=== PATIENT | female | born 1995 | race Caucasian/White ===

== ENCOUNTER → 2017-04-11 | Outpatient (REF) | payer OTHER ==
[~2017-04-11] MED LIST: BACT800T5 PO; CEFD1CAP8 PO; CIPR500T3 PO; FLAG500T PO; HUMI40KI SC; HYDR-3716 PO; IBUP80TA PO; IMUR50TA6 PO; LEVA1TAB2 PO; NO MEDS; PENT500C PO; PERC5TAB12 PO; PRED10TA PO; PRED20TA PO; PRED5PAK PO; PRENTAB40 PO; RANI1TAB6 PO; TAMS0.4C2 PO; ZOFR4TAB3 PO
== END ==
LOC: M SFHCCLAY 09:54
PROVIDERS: ATTEND Family Medicine
DX: Z01.419 Encounter for gynecological examination (general) (routine) without abnormal findings (principal); Z72.51 High risk heterosexual behavior

== ENCOUNTER → 2017-04-12 | Outpatient (CLI) | payer OTHER ==
[2017-04-12 12:35] LABS: ANION GAP 8 MEQ/L (8-16); BLOOD UREA NITROGEN 12 MG/DL (7-18); CARBON DIOXIDE LEVEL 27 MEQ/L (21-32); CHLORIDE LEVEL 103 MEQ/L (98-107); CREATININE FOR GFR 0.58 MG/DL (0.55-1.02); GLOMERULAR FILTRATION RATE > 60.0 (>60); GLUCOSE, FASTING 76 MG/DL (70-105); POTASSIUM SERUM 4.2 MEQ/L (3.5-5.1); SODIUM LEVEL 138 MEQ/L (136-145)
[2017-04-12 12:42] LABS: HEPATITIS B SURFACE ANTIBODY NEGATIVE (POSITIVE); VITAMIN B12 LEVEL 434 PG/ML (247-911)
[2017-04-12 12:48] LABS: MEAN CORPUSCULAR HEMOGLOBIN 28.9 pg (27.0-33.0); MEAN CORPUSCULAR HGB CONC 32.7 g/dl (32.0-36.5); MEAN CORPUSCULAR VOLUME 88.5 fl (80.0-96.0); RED CELL DISTRIBUTION WIDTH 14.2 % (11.5-14.5); WHITE BLOOD COUNT 11.5 K/mm3 (4.0-10.0)
[2017-04-23 14:38] LABS: ANSER ADA #3170 SEE SEPARATE REPORT
== END ==
LOC: M LAB 10:31
PROVIDERS: ATTEND Physician Assistant
DX: K50.10 Crohn's disease of large intestine without complications (principal)

== ENCOUNTER → 2017-04-12 | Outpatient (CLI) | payer OTHER | LOC: M LAB 10:44 | PROVIDERS: ATTEND Family Medicine | DX: Z72.51 High risk heterosexual behavior (principal) ==

== ENCOUNTER 2018-02-10 22:43 | Emergency (ER) | payer MEDICAID, SELFPAY, OTHER ==
[2018-02-11] MEDS: AUGMENTIN 875 MG TAB PO ×2 (00:43)
[2018-02-11] MEDS: OXYCODONE/APAP 5MG/325MG(BULK FOR ED) 1 TABLET PO ×2 (00:44)
== END 2018-02-11 00:50 | disposition home or self-care (01) ==
LOC: M ED 22:43
DX: S02.5XXA Fracture of tooth (traumatic), initial encounter for closed fracture (principal); X58.XXXA Exposure to other specified factors, initial encounter; Y92.89 Other specified places as the place of occurrence of the external cause
CPT/HCPCS: 99284

== ENCOUNTER 2018-02-18 17:37 | Emergency (ER) | payer MEDICAID, SELFPAY ==
[2018-02-18] MEDS: ACETAMINOPHEN 325 MG TAB PO ×2 (20:16)
[2018-02-18 20:28] LABS: BASO % 0.3 % (0.0-1.0); EOS # 0.1 10^3/uL (0.0-0.50); EOS % 1.1 % (0.0-3.0); HEMATOCRIT 38.2 % (36.0-47.0); HEMOGLOBIN 12.1 g/dl (12.0-15.5); IMMATURE GRANULOCYTE % 0.3 % (0-3.0); LYMPH # 2.1 10^3/uL (1.5-6.5); LYMPH % 22.1 % (24.0-44.0); MEAN CORPUSCULAR HEMOGLOBIN 26.9 pg (27.0-33.0); MEAN CORPUSCULAR HGB CONC 31.7 g/dl (32.0-36.5); MEAN CORPUSCULAR VOLUME 85.1 fl (80.0-96.0); MONO # 0.7 10^3/uL (0.0-0.8); MONO % 7.8 % (0.0-5.0); NEUTROPHILS # 6.3 10^3/uL (1.8-7.7); NEUTROPHILS % 68.4 % (36.0-66.0); PLATELET COUNT, AUTOMATED 367 10^3/uL (150-450); RED BLOOD COUNT 4.49 10^6/uL (4.00-5.40); RED CELL DISTRIBUTION WIDTH 13.5 % (11.5-14.5); WHITE BLOOD COUNT 9.3 10^3/uL (4.0-10.0)
[2018-02-18 20:34] LABS: KETONE, URINE AUTO RFX NEGATIVE (NEGATIVE); LEUKOCYTE ESTERASE UR AUTO RFX NEGATIVE (NEGATIVE); MUCUS, URINE RFX SMALL (NEGATIVE); NITRITE, URINE AUTO RFX NEGATIVE (NEGATIVE); RBC, URINE AUTO RFX 3 /HPF (0-3); SPECIFIC GRAVITY UR AUTO RFX 1.021 (1.002-1.035); SQUAM EPITHELIAL CELL UR AURFX 5 /HPF (0-6); WBC, URINE AUTO RFX 2 /HPF (0-3)
[2018-02-18 20:47] LABS: CONTROL LINE MONO INT CTR LINE PRESENT; MONO SCRN NEGATIVE (NEGATIVE)
[2018-02-18 21:09] LABS: ALBUMIN 3.2 GM/DL (3.2-5.2); ALKALINE PHOSPHATASE 67 U/L (45-117); ALT/SGPT 28 U/L (12-78); ANION GAP 9 MEQ/L (8-16); AST/SGOT 27 U/L (7-37); BILIRUBIN,DIRECT 0.1 MG/DL (0.0-0.2); BILIRUBIN,TOTAL 0.2 MG/DL (0.2-1.0); BLOOD UREA NITROGEN 11 MG/DL (7-18); CALCIUM LEVEL 8.7 MG/DL (8.5-10.1); CARBON DIOXIDE LEVEL 27 MEQ/L (21-32); CHLORIDE LEVEL 100 MEQ/L (98-107); CREATININE FOR GFR 0.68 MG/DL (0.55-1.30); GLOMERULAR FILTRATION RATE > 60.0 (>60); GLUCOSE, FASTING 92 MG/DL (70-100); HCG, SERUM QUANTITATIVE 34280 MIU/ML; POTASSIUM SERUM 4.3 MEQ/L (3.5-5.1); SODIUM LEVEL 136 MEQ/L (136-145); TOTAL PROTEIN 7.8 GM/DL (6.4-8.2)
== END 2018-02-18 21:45 | disposition home or self-care (01) ==
LOC: M ED 17:37
DX: J02.8 Acute pharyngitis due to other specified organisms (principal); K50.90 Crohn's disease, unspecified, without complications; R51 Headache; F41.9 Anxiety disorder, unspecified; Z90.49 Acquired absence of other specified parts of digestive tract; Z72.0 Tobacco use
CPT/HCPCS: 80076

== ENCOUNTER 2018-03-16 23:46 | Emergency (ER) | payer SELFPAY, MEDICAID ==
[2018-03-17 01:10] LABS: PROTHROMBIN TIME 12.2 SECONDS (12.1-14.4)
[2018-03-17 01:16] LABS: BASO % 0.3 % (0.0-1.0); EOS # 0.3 10^3/uL (0.0-0.50); EOS % 3.2 % (0.0-3.0); HEMOGLOBIN 11.4 g/dl (12.0-15.5); IMMATURE GRANULOCYTE % 0.3 % (0-3.0); LYMPH # 1.9 10^3/uL (1.5-6.5); LYMPH % 18.3 % (24.0-44.0); MEAN CORPUSCULAR HGB CONC 31.7 g/dl (32.0-36.5); MEAN CORPUSCULAR VOLUME 85.1 fl (80.0-96.0); MONO # 0.6 10^3/uL (0.0-0.8); MONO % 6.2 % (0.0-5.0); NEUTROPHILS # 7.3 10^3/uL (1.8-7.7); NEUTROPHILS % 71.7 % (36.0-66.0); PLATELET COUNT, AUTOMATED 348 10^3/uL (150-450); RED BLOOD COUNT 4.23 10^6/uL (4.00-5.40); RED CELL DISTRIBUTION WIDTH 15.5 % (11.5-14.5); WHITE BLOOD COUNT 10.2 10^3/uL (4.0-10.0)
[2018-03-17] MEDS: NS 1,000 ML IV (01:25)
[2018-03-17] MEDS: ONDANSETRON 4MG/2ML VIAL (J2405) IV (01:25)
[2018-03-17] MEDS: MORPHINE 2 MG/ML 1ML SYRINGE (J2270) IV (01:25)
[2018-03-17 02:05] LABS: ALBUMIN 3.5 GM/DL (3.2-5.2); ALBUMIN/GLOBULIN RATIO 0.83 (1.00-1.93); ALKALINE PHOSPHATASE 60 U/L (45-117); ALT/SGPT 29 U/L (12-78); ANION GAP 6 MEQ/L (8-16); AST/SGOT 32 U/L (7-37); BILIRUBIN,DIRECT < 0.1 MG/DL (0.0-0.2); BILIRUBIN,TOTAL 0.3 MG/DL (0.2-1.0); BLOOD UREA NITROGEN 10 MG/DL (7-18); CALCIUM LEVEL 8.5 MG/DL (8.5-10.1); CARBON DIOXIDE LEVEL 26 MEQ/L (21-32); CHLORIDE LEVEL 106 MEQ/L (98-107); CREATININE FOR GFR 0.63 MG/DL (0.55-1.30); GLOMERULAR FILTRATION RATE > 60.0 (>60); GLUCOSE, FASTING 92 MG/DL (70-100); HCG, SERUM QUANTITATIVE 17923 MIU/ML; LIPASE 93 U/L (73-393); SODIUM LEVEL 138 MEQ/L (136-145); TOTAL PROTEIN 7.7 GM/DL (6.4-8.2)
== END 2018-03-17 04:53 | disposition home or self-care (01) ==
LOC: M ED 23:46
DX: O03.4 Incomplete spontaneous abortion without complication (principal); O99.331 Smoking (tobacco) complicating pregnancy, first trimester; Z3A.01 Less than 8 weeks gestation of pregnancy
CPT/HCPCS: J2405

== ENCOUNTER 2018-04-10 18:01 | Day surgery (SDC) | payer MEDICAID, SELFPAY, OTHER ==
[2018-04-10 19:55] LABS: BASO % 0.4 % (0.0-1.0); EOS % 0.4 % (0.0-3.0); HEMATOCRIT 25.8 % (36.0-47.0); IMMATURE GRANULOCYTE % 0.7 % (0-3.0); LYMPH # 2.1 10^3/uL (1.5-6.5); LYMPH % 22.9 % (24.0-44.0); MEAN CORPUSCULAR HEMOGLOBIN 24.8 pg (27.0-33.0); MEAN CORPUSCULAR VOLUME 79.9 fl (80.0-96.0); MONO # 0.7 10^3/uL (0.0-0.8); MONO % 7.9 % (0.0-5.0); NEUTROPHILS # 6.1 10^3/uL (1.8-7.7); NEUTROPHILS % 67.7 % (36.0-66.0); PLATELET COUNT, AUTOMATED 336 10^3/uL (150-450); RED BLOOD COUNT 3.23 10^6/uL (4.00-5.40); RED CELL DISTRIBUTION WIDTH 16.2 % (11.5-14.5)
[2018-04-10] MEDS: NORCO, ANEXSIA 5/325MG TABLET (HYDROcodone/ACETAMINOPHEN) PO ×2 (19:57)
[2018-04-10] MEDS: NS 1,000 ML IV ×2 (20:45)
[2018-04-10 21:12] LABS: CONTROL LINE HCG INT CTR LINE PRESENT; HCG, SERUM QUALITATIVE POSITIVE (NEGATIVE)
[2018-04-10 21:15] LABS: INR 1.09; PROTHROMBIN TIME 14.2 SECONDS (12.1-14.4)
[2018-04-10 21:18] LABS: ANION GAP 8 MEQ/L (8-16); BLOOD UREA NITROGEN 16 MG/DL (7-18); CALCIUM LEVEL 8.2 MG/DL (8.5-10.1); CARBON DIOXIDE LEVEL 25 MEQ/L (21-32); CHLORIDE LEVEL 105 MEQ/L (98-107); GLOMERULAR FILTRATION RATE > 60.0 (>60); GLUCOSE, FASTING 94 MG/DL (70-100); POTASSIUM SERUM 3.6 MEQ/L (3.5-5.1); SODIUM LEVEL 138 MEQ/L (136-145)
[2018-04-10] MEDS: ONDANSETRON 4MG/2ML VIAL (J2405) IV ×2 (22:05)
[2018-04-10] MEDS: MORPHINE 4 MG/ML 1ML VIAL/SYRINGE (J2270) IV ×2 (22:06)
[2018-04-11] MEDS: LR 1,000 ML IV ×6 (00:04→05:13)
[2018-04-11] MEDS ORDERED: DOXYCYCLINE HYCLATE 100 MG/10 ML VIAL As Ordered ×4 (01:36→03:18)
[2018-04-11] MEDS ORDERED: MIDAZOLAM INJ 2 MG/2 ML VIAL (J2250) As Ordered ×2 (02:29)
[2018-04-11] MEDS ORDERED: PROPOFOL 200 MG/20 ML VIAL As Ordered ×2 (02:29)
[2018-04-11] MEDS ORDERED: LIDOCAINE 2% INJ 100 MG/5 ML SDV (FOR ANES.) As Ordered ×2 (02:29)
[2018-04-11] MEDS ORDERED: fentaNYL 100 MCG/2 ML INJECTION (J3010) As Ordered ×2 (02:29)
[2018-04-11] MEDS: DOXYCYCLINE HYCLATE 100 MG in D5W MINI-BAG PLUS 100 ML IV (03:30)
[2018-04-11] MEDS ORDERED: ONDANSETRON 4MG/2ML VIAL (J2405) As Ordered ×2 (03:40)
[2018-04-11] MEDS ORDERED: dexameTHASONE 4 MG/ML 1ML VIAL (J1100) As Ordered ×2 (03:40)
[2018-04-11] MEDS ORDERED: KETOROLAC 60 MG/2 ML VIAL (J1885) As Ordered ×2 (03:40)
[2018-04-11] MEDS: METHYLERGONOVINE MALEATE 0.2 MG/ML VIAL (J2210) As Ordered ×2 (03:47)
[2018-04-11] MEDS: SILVER NITRATE APPLICATOR As Ordered ×2 (03:49)
[2018-04-11] MEDS ORDERED: ONDANSETRON 4MG/2ML VIAL (J2405) IV ×2 (04:15)
[2018-04-11] MEDS ORDERED: fentaNYL 100 MCG/2 ML INJECTION (J3010) IV ×2 (04:15)
[2018-04-11 04:55] LABS: HEMATOCRIT 23.9 % (36.0-47.0); HEMOGLOBIN 7.1 g/dl (12.0-15.5); MEAN CORPUSCULAR HEMOGLOBIN 24.4 pg (27.0-33.0); MEAN CORPUSCULAR HGB CONC 29.7 g/dl (32.0-36.5); MEAN CORPUSCULAR VOLUME 82.1 fl (80.0-96.0); PLATELET COUNT, AUTOMATED 233 10^3/uL (150-450); RED BLOOD COUNT 2.91 10^6/uL (4.00-5.40); RED CELL DISTRIBUTION WIDTH 16.4 % (11.5-14.5); WHITE BLOOD COUNT 9.1 10^3/uL (4.0-10.0)
[2018-04-11] MEDS: KETOROLAC 30 MG/ML VIAL (J1885) IV ×2 (05:10)
[2018-04-11] MEDS: DOXYCYCLINE HYCLATE 100 MG TAB PO ×2 (05:10)
[2018-04-11 05:17] LABS: HCG, SERUM QUANTITATIVE 218 MIU/ML
== END 2018-04-11 06:45 | disposition left against medical advice (07) ==
LOC: M MS5PR 04-11 04:42 → M ED 18:01 → M SDC 04-11 06:45
DX: O02.1 Missed abortion (principal); K21.9 Gastro-esophageal reflux disease without esophagitis; F41.9 Anxiety disorder, unspecified; R51 Headache; K50.90 Crohn's disease, unspecified, without complications
CPT/HCPCS: 59820

== ENCOUNTER → 2018-04-30 | Outpatient (CLI) | payer MEDICAID, SELFPAY | LOC: M OUTALCOH 09:51 | DX: Z13.9 Encounter for screening, unspecified (principal); F12.20 Cannabis dependence, uncomplicated ==

== ENCOUNTER 2018-05-13 11:17 | Outpatient (RCR) | payer MEDICAID, SELFPAY | END 2018-06-08 | LOC: M OUTALCOH 05-15 14:00 | DX: F11.20 Opioid dependence, uncomplicated (principal); F17.200 Nicotine dependence, unspecified, uncomplicated ==

== ENCOUNTER 2018-06-09 14:32 | Outpatient (RCR) | payer MEDICAID | END 2018-07-09 | LOC: M OUTALCOH 14:32 | DX: F11.20 Opioid dependence, uncomplicated (principal); F17.200 Nicotine dependence, unspecified, uncomplicated ==

== ENCOUNTER → 2018-06-23 | Outpatient (CLI) | payer MEDICAID ==
[2018-06-23 13:24] LABS: BASO # 0.1 10^3/uL (0.0-0.2); BASO % 0.8 % (0.0-1.0); EOS # 0.4 10^3/uL (0.0-0.50); EOS % 3.6 % (0.0-3.0); HEMATOCRIT 31.5 % (36.0-47.0); HEMOGLOBIN 9.1 g/dl (12.0-15.5); IMMATURE GRANULOCYTE % 0.2 % (0-3.0); LYMPH # 1.8 10^3/uL (1.5-6.5); LYMPH % 17.4 % (24.0-44.0); MEAN CORPUSCULAR HEMOGLOBIN 19.1 pg (27.0-33.0); MEAN CORPUSCULAR HGB CONC 28.9 g/dl (32.0-36.5); MEAN CORPUSCULAR VOLUME 66.2 fl (80.0-96.0); MONO # 0.8 10^3/uL (0.0-0.8); NEUTROPHILS # 7.2 10^3/uL (1.8-7.7); PLATELET COUNT, AUTOMATED 540 10^3/uL (150-450); RED BLOOD COUNT 4.76 10^6/uL (4.00-5.40); RED CELL DISTRIBUTION WIDTH 20.7 % (11.5-14.5); WHITE BLOOD COUNT 10.3 10^3/uL (4.0-10.0)
[2018-06-23 14:26] LABS: ALBUMIN 3.3 GM/DL (3.2-5.2); ALBUMIN/GLOBULIN RATIO 0.83 (1.00-1.93); ALKALINE PHOSPHATASE 101 U/L (45-117); ALT/SGPT 132 U/L (12-78); AMYLASE 54 U/L (25-115); ANION GAP 10 MEQ/L (8-16); AST/SGOT 135 U/L (7-37); BILIRUBIN,TOTAL 0.3 MG/DL (0.2-1.0); BLOOD UREA NITROGEN 18 MG/DL (7-18); CARBON DIOXIDE LEVEL 23 MEQ/L (21-32); CHLORIDE LEVEL 104 MEQ/L (98-107); CREATININE FOR GFR 0.64 MG/DL (0.55-1.30); FREE T4 1.26 NG/DL (0.76-1.46); GLOMERULAR FILTRATION RATE > 60.0 (>60); GLUCOSE, FASTING 68 MG/DL (70-100); LIPASE 86 U/L (73-393); POTASSIUM SERUM 4.9 MEQ/L (3.5-5.1); SODIUM LEVEL 137 MEQ/L (136-145); TOTAL PROTEIN 7.3 GM/DL (6.4-8.2)
== END ==
LOC: M WUC 10:15
DX: R10.84 Generalized abdominal pain (principal)
CPT/HCPCS: 82150

== ENCOUNTER → 2018-06-27 | Outpatient (CLI) | payer MEDICAID | LOC: M LAB 14:36 | DX: F11.20 Opioid dependence, uncomplicated (principal) | CPT/HCPCS: 36415 ==

== ENCOUNTER → 2018-07-10 | Outpatient (CLI) | payer MEDICAID ==
[2018-07-10 13:43] LABS: BASO # 0.1 10^3/uL (0.0-0.2); BASO % 0.5 % (0.0-1.0); EOS # 0.4 10^3/uL (0.0-0.50); EOS % 4.6 % (0.0-3.0); HEMATOCRIT 32.7 % (36.0-47.0); HEMOGLOBIN 9.3 g/dl (12.0-15.5); IMMATURE GRANULOCYTE % 0.3 % (0-3.0); LYMPH # 3.4 10^3/uL (1.5-6.5); LYMPH % 36.6 % (24.0-44.0); MEAN CORPUSCULAR HEMOGLOBIN 18.8 pg (27.0-33.0); MEAN CORPUSCULAR HGB CONC 28.4 g/dl (32.0-36.5); MEAN CORPUSCULAR VOLUME 65.9 fl (80.0-96.0); MONO # 1.3 10^3/uL (0.0-0.8); MONO % 13.4 % (0.0-5.0); NEUTROPHILS # 4.2 10^3/uL (1.8-7.7); NEUTROPHILS % 44.6 % (36.0-66.0); PLATELET COUNT, AUTOMATED 424 10^3/uL (150-450); RED BLOOD COUNT 4.96 10^6/uL (4.00-5.40); WHITE BLOOD COUNT 9.3 10^3/uL (4.0-10.0)
[2018-07-10 13:54] LABS: ALBUMIN 3.1 GM/DL (3.2-5.2); ALBUMIN/GLOBULIN RATIO 0.89 (1.00-1.93); ALKALINE PHOSPHATASE 135 U/L (45-117); ALT/SGPT 212 U/L (12-78); ANION GAP 7 MEQ/L (8-16); AST/SGOT 127 U/L (7-37); BILIRUBIN,TOTAL 0.7 MG/DL (0.2-1.0); BLOOD UREA NITROGEN 14 MG/DL (7-18); CALCIUM LEVEL 8.4 MG/DL (8.5-10.1); CARBON DIOXIDE LEVEL 27 MEQ/L (21-32); CHLORIDE LEVEL 107 MEQ/L (98-107); CREATININE FOR GFR 0.64 MG/DL (0.55-1.30); GLOMERULAR FILTRATION RATE > 60.0 (>60); GLUCOSE, FASTING 73 MG/DL (70-100); POTASSIUM SERUM 4.1 MEQ/L (3.5-5.1); SODIUM LEVEL 141 MEQ/L (136-145); TOTAL PROTEIN 6.6 GM/DL (6.4-8.2)
== END ==
LOC: M WUC 11:28
DX: K50.919 Crohn's disease, unspecified, with unspecified complications (principal); K59.00 Constipation, unspecified
CPT/HCPCS: 80053

== ENCOUNTER 2018-07-11 10:30 | Outpatient (RCR) | payer MEDICAID | END 2018-08-08 | LOC: M OUTALCOH 07-15 10:00 | DX: F11.20 Opioid dependence, uncomplicated (principal); F17.200 Nicotine dependence, unspecified, uncomplicated ==

== ENCOUNTER → 2018-07-11 | Outpatient (CLI) | payer MEDICAID ==
[2018-07-11 14:50] LABS: AMYLASE 52 U/L (25-115); LIPASE 103 U/L (73-393)
[2018-07-11 14:52] LABS: HEPATITIS B SURFACE ANTIGEN NEGATIVE (NEGATIVE)
[2018-07-11 15:19] LABS: HEPATITIS B CORE ANTIBODY IGM NEGATIVE (NEGATIVE)
[2018-07-11 15:22] LABS: HEPATITIS A ANTIBODY IGM NEGATIVE (NEGATIVE)
[2018-07-11 15:23] LABS: HEPATITIS C VIRUS ABY INDEX > 11.0 INDEX (<0.8)
[2018-07-15 08:06] LABS: HCV RNA NAA QUALITATIVE Positive (Negative)
== END ==
LOC: M WUC 12:30
DX: R94.5 Abnormal results of liver function studies (principal)
CPT/HCPCS: 82150

== ENCOUNTER → 2018-07-18 | Outpatient (REF) | payer MEDICAID, OTHER ==
[2018-07-18 16:45] LABS: ALBUMIN 3.1 GM/DL (3.2-5.2); ALBUMIN/GLOBULIN RATIO 0.86 (1.00-1.93); ALKALINE PHOSPHATASE 98 U/L (45-117); ALT/SGPT 59 U/L (12-78); ANION GAP 6 MEQ/L (8-16); AST/SGOT 39 U/L (7-37); BILIRUBIN,TOTAL 0.5 MG/DL (0.2-1.0); BLOOD UREA NITROGEN 8 MG/DL (7-18); CALCIUM LEVEL 8.5 MG/DL (8.5-10.1); CARBON DIOXIDE LEVEL 27 MEQ/L (21-32); CHLORIDE LEVEL 105 MEQ/L (98-107); CREATININE FOR GFR 0.57 MG/DL (0.55-1.30); GLOMERULAR FILTRATION RATE > 60.0 (>60); GLUCOSE, FASTING 65 MG/DL (70-100); POTASSIUM SERUM 4.8 MEQ/L (3.5-5.1); SODIUM LEVEL 138 MEQ/L (136-145); TOTAL PROTEIN 6.7 GM/DL (6.4-8.2)
[2018-07-18 16:46] LABS: BASO % 0.5 % (0.0-1.0); EOS # 0.3 10^3/uL (0.0-0.50); EOS % 3.8 % (0.0-3.0); HEMATOCRIT 32.9 % (36.0-47.0); HEMOGLOBIN 9.3 g/dl (12.0-15.5); IMMATURE GRANULOCYTE % 0.1 % (0-3.0); LYMPH # 2.5 10^3/uL (1.5-6.5); LYMPH % 30.7 % (24.0-44.0); MEAN CORPUSCULAR HEMOGLOBIN 18.9 pg (27.0-33.0); MEAN CORPUSCULAR HGB CONC 28.3 g/dl (32.0-36.5); MONO # 0.8 10^3/uL (0.0-0.8); MONO % 10.4 % (0.0-5.0); NEUTROPHILS # 4.4 10^3/uL (1.8-7.7); NEUTROPHILS % 54.5 % (36.0-66.0); PLATELET COUNT, AUTOMATED 422 10^3/uL (150-450); RED BLOOD COUNT 4.91 10^6/uL (4.00-5.40); RED CELL DISTRIBUTION WIDTH 24.8 % (11.5-14.5); WHITE BLOOD COUNT 8.1 10^3/uL (4.0-10.0)
[2018-07-18 17:30] LABS: HIV 1&2 SCREEN CENTAUR NEGATIVE (NEGATIVE)
[2018-07-21 10:41] LABS: HEPATITIS B SURFACE ANTIBODY NEGATIVE (POSITIVE)
[2018-07-23 08:15] LABS: HEPATITIS B CORE ANTIBODY IGG Negative (Negative)
[2018-07-24 08:06] LABS: ALPHA 2-MACROGLOBULIN 178 mg/dL (110-276); ALT 52 IU/L (0-40); APOLIPOPROTEIN A-1 138 mg/dL (116-209); FIBROSIS SCORE 0.06 (0.00-0.21); GGT 44 IU/L (0-60); HAPTOGLOBIN 160 mg/dL (34-200); HEPATITIS A IgG TOTAL Negative (Negative); HEPATITIS C QUANTITATION 4808910 IU/mL (.); HEPATITIS C VIRUS GENOTYPE 3 (.); NECROINFLAM SCORE 0.23 (0.00-0.17); NECROINFLAMM GRADE A0-A1 (.); TOTAL BILIRUBIN 0.3 mg/dL (0.0-1.2)
== END ==
LOC: M LABDRAW1 16:01
DX: B17.10 Acute hepatitis C without hepatic coma (principal)

== ENCOUNTER → 2018-08-11 | Outpatient (CLI) | payer OTHER ==
[2018-08-11 14:08] LABS: HEMATOCRIT 32.9 % (36.0-47.0); HEMOGLOBIN 9.4 g/dl (12.0-15.5); MEAN CORPUSCULAR HEMOGLOBIN 19.1 pg (27.0-33.0); MEAN CORPUSCULAR HGB CONC 28.6 g/dl (32.0-36.5); PLATELET COUNT, AUTOMATED 442 10^3/uL (150-450); RED BLOOD COUNT 4.91 10^6/uL (4.00-5.40); RED CELL DISTRIBUTION WIDTH 25.5 % (11.5-14.5); WHITE BLOOD COUNT 7.9 10^3/uL (4.0-10.0)
[2018-08-11 14:58] LABS: ALBUMIN 3.1 GM/DL (3.2-5.2); ALBUMIN/GLOBULIN RATIO 0.94 (1.00-1.93); ALKALINE PHOSPHATASE 92 U/L (45-117); ALT/SGPT 208 U/L (12-78); ANION GAP 7 MEQ/L (8-16); AST/SGOT 196 U/L (7-37); BILIRUBIN,TOTAL 0.5 MG/DL (0.2-1.0); BLOOD UREA NITROGEN 11 MG/DL (7-18); CALCIUM LEVEL 8.5 MG/DL (8.5-10.1); CARBON DIOXIDE LEVEL 26 MEQ/L (21-32); CHLORIDE LEVEL 105 MEQ/L (98-107); CREATININE FOR GFR 0.61 MG/DL (0.55-1.30); FERRITIN 8 NG/ML (8-252); GLOMERULAR FILTRATION RATE > 60.0 (>60); GLUCOSE, FASTING 90 MG/DL (70-100); HCG, SERUM QUANTITATIVE 10851 MIU/ML; IRON (FE) 20 UG/DL (50-170); PERCENT SATURATION 4.1 % (13.2-45.0); POTASSIUM SERUM 4.5 MEQ/L (3.5-5.1); SODIUM LEVEL 138 MEQ/L (136-145); TOTAL 25(OH) VITAMIN D 31.4 NG/ML (30.0-100.0); TOTAL IRON BINDING CAPACITY 485 UG/DL (250-450); TOTAL PROTEIN 6.4 GM/DL (6.4-8.2); VITAMIN B12 LEVEL 1186 PG/ML (247-911)
== END ==
LOC: M WUC 10:59
DX: R10.31 Right lower quadrant pain (principal); K50.10 Crohn's disease of large intestine without complications; B17.10 Acute hepatitis C without hepatic coma
CPT/HCPCS: 83550

== ENCOUNTER → 2018-08-21 | Outpatient (REF) | payer OTHER ==
[2018-08-21 12:12] LABS: BASO # 0.1 10^3/uL (0.0-0.2); BASO % 0.6 % (0.0-1.0); EOS # 0.3 10^3/uL (0.0-0.50); EOS % 3.7 % (0.0-3.0); HEMATOCRIT 33.8 % (36.0-47.0); HEMOGLOBIN 10.1 g/dl (12.0-15.5); IMMATURE GRANULOCYTE % 0.4 % (0-3.0); LYMPH # 2.2 10^3/uL (1.5-6.5); MEAN CORPUSCULAR HEMOGLOBIN 20.3 pg (27.0-33.0); MEAN CORPUSCULAR HGB CONC 29.9 g/dl (32.0-36.5); MEAN CORPUSCULAR VOLUME 67.9 fl (80.0-96.0); MONO # 0.9 10^3/uL (0.0-0.8); MONO % 11.5 % (0.0-5.0); NEUTROPHILS # 4.6 10^3/uL (1.8-7.7); NEUTROPHILS % 56.8 % (36.0-66.0); PLATELET COUNT, AUTOMATED 434 10^3/uL (150-450); RED BLOOD COUNT 4.98 10^6/uL (4.00-5.40); RED CELL DISTRIBUTION WIDTH 27.9 % (11.5-14.5); WHITE BLOOD COUNT 8.1 10^3/uL (4.0-10.0)
[2018-08-21 12:19] LABS: ALBUMIN 3.4 GM/DL (3.2-5.2); ALBUMIN/GLOBULIN RATIO 0.97 (1.00-1.93); ALKALINE PHOSPHATASE 109 U/L (45-117); ALT/SGPT 276 U/L (12-78); ANION GAP 6 MEQ/L (8-16); AST/SGOT 211 U/L (7-37); BILIRUBIN,TOTAL 0.7 MG/DL (0.2-1.0); BLOOD UREA NITROGEN 12 MG/DL (7-18); CALCIUM LEVEL 8.6 MG/DL (8.5-10.1); CARBON DIOXIDE LEVEL 28 MEQ/L (21-32); CHLORIDE LEVEL 102 MEQ/L (98-107); CREATININE FOR GFR 0.62 MG/DL (0.55-1.30); GLOMERULAR FILTRATION RATE > 60.0 (>60); GLUCOSE, FASTING 65 MG/DL (70-100); POTASSIUM SERUM 4.5 MEQ/L (3.5-5.1); SODIUM LEVEL 136 MEQ/L (136-145); TOTAL PROTEIN 6.9 GM/DL (6.4-8.2)
[2018-08-21 12:26] LABS: HEPATITIS B SURFACE ANTIBODY NEGATIVE (POSITIVE)
[2018-08-25 14:12] LABS: HEPATITIS C QUANTITATION 3448980 IU/mL (.)
== END ==
LOC: M SFHCPLAZ 08:49
DX: B19.20 Unspecified viral hepatitis C without hepatic coma (principal)
CPT/HCPCS: 80053

== ENCOUNTER → 2018-08-29 | Outpatient (REF) | payer MEDICAID ==
[~2018-08-29] MED LIST changes: +AUGM875T28 PO; +FERR325T3 PO; -IMUR50TA6 PO; +IMUR50TA7 PO; +MAGICMW SSP; +ZOFR4TAB14 PO; -ZOFR4TAB3 PO
== END ==
LOC: M LABDRAW1 10:53
PROVIDERS: ATTEND Psychiatry & Neurology Psychiatry
DX: F11.20 Opioid dependence, uncomplicated (principal)

== ENCOUNTER → 2018-09-08 | Outpatient (RCR) | payer MEDICAID | LOC: M OUTALCOH 08-11 13:23 | PROVIDERS: ATTEND Psychiatry & Neurology Psychiatry | DX: F11.20 Opioid dependence, uncomplicated (principal); F17.200 Nicotine dependence, unspecified, uncomplicated ==

== ENCOUNTER → 2018-09-22 | Outpatient (CLI) | payer MEDICAID ==
[2018-09-22 13:30] LABS: BASO # 0.1 10^3/uL (0.0-0.2); BASO % 0.7 % (0.0-1.0); EOS # 0.1 10^3/uL (0.0-0.50); EOS % 1.5 % (0.0-3.0); HEMATOCRIT 37.4 % (36.0-47.0); HEMOGLOBIN 11.7 g/dl (12.0-15.5); LYMPH # 1.6 10^3/uL (1.5-6.5); LYMPH % 20.2 % (24.0-44.0); MEAN CORPUSCULAR HEMOGLOBIN 24.3 pg (27.0-33.0); MEAN CORPUSCULAR HGB CONC 31.3 g/dl (32.0-36.5); MEAN CORPUSCULAR VOLUME 77.6 fl (80.0-96.0); MONO # 0.5 10^3/uL (0.0-0.8); MONO % 6.3 % (0.0-5.0); NEUTROPHILS # 5.8 10^3/uL (1.8-7.7); NEUTROPHILS % 70.9 % (36.0-66.0); PLATELET COUNT, AUTOMATED 311 10^3/uL (150-450); RED BLOOD COUNT 4.82 10^6/uL (4.00-5.40); WHITE BLOOD COUNT 8.1 10^3/uL (4.0-10.0)
[2018-09-22 13:51] LABS: ANISOCYTOSIS 2+; PLATELET ESTIMATE NORMAL (NORMAL)
[2018-09-22 14:23] LABS: HEPATITIS C VIRUS ABY INDEX > 11.0 INDEX (<0.8); HIV 1&2 SCREEN CENTAUR NEGATIVE (NEGATIVE); RUBELLA IgG QUALITATIVE IMMUNE (IMMUNE)
[2018-09-22 14:48] LABS: CHLAMYDIA DNA AMPLIFICATION NEGATIVE (NEGATIVE); GC DNA AMPLIFICATION NEGATIVE (NEGATIVE)
== END ==
LOC: M WUC 10:36
PROVIDERS: ATTEND Obstetrics & Gynecology
DX: Z36.89 Encounter for other specified antenatal screening (principal)

== ENCOUNTER 2018-10-06 09:30 | Outpatient (RCR) | payer MEDICAID | END 2018-10-09 | LOC: M OUTALCOH 09:30 | PROVIDERS: ATTEND Psychiatry & Neurology Psychiatry | DX: F11.20 Opioid dependence, uncomplicated (principal); F17.200 Nicotine dependence, unspecified, uncomplicated ==

== ENCOUNTER → 2018-10-06 | Outpatient (REF) | payer MEDICAID | LOC: M LABDRAW1 11:39 | PROVIDERS: ATTEND Psychiatry & Neurology Psychiatry | DX: F11.20 Opioid dependence, uncomplicated (principal) ==

== ENCOUNTER 2018-10-13 09:29 | Outpatient (RCR) | payer MEDICAID | END 2018-11-06 | LOC: M OUTALCOH 09:29 | PROVIDERS: ATTEND Psychiatry & Neurology Psychiatry | DX: F11.20 Opioid dependence, uncomplicated (principal); F17.200 Nicotine dependence, unspecified, uncomplicated ==

== ENCOUNTER → 2018-11-03 | Outpatient (CLI) | payer MEDICAID ==
--- NOTE | 2018-11-03 12:16 | REP ---
Clinical: Anatomical evaluation. Comparison: None . Findings: Examination demonstrates a single live intrauterine in breech presentation. motion is identified by technologist. Placenta is noted anterior and grade grade 1 without evidence for placenta previa or abruption. Amniotic fluid volume is normal. Cervix measures 4.6 cm in length and appears closed. No evidence for nuchal cord. Gestational age by current measurements 18 weeks 2 days with BOBBI 04/04/2019 . FHR equals 141 beats per minute. BPD 4.2 cm 18 weeks 5 days HC 15.4 cm 18 weeks 2 days AC 12.2 cm 17 weeks 6 days FL 2.7 cm 18 weeks 2 days HL 2.8 cm 18 weeks 6 days HC/AC ratio 1.26 Estimated weight 226 grams ( 43rd percentile). Anatomical assessment demonstrates normal structures including cranium, choroid plexus, cavum, cerebellum/posterior fossa, facial features, lungs, four-chamber heart/ventricular outflow tracts, diaphragm, stomach, cord insertion/three-vessel cord, kidneys/bladder, spine, and extremities. Impression: Single live intrauterine in breech presentation demonstrating appropriate interval growth. Anatomical assessment is complete and normal. No gross abnormalities are identified. Electronically Signed by Erasto Morris MD 11/03/2018 12:07 P
== END ==
LOC: M SMT 10:47
PROVIDERS: ATTEND Obstetrics & Gynecology
DX: Z34.82 Encounter for supervision of other normal pregnancy, second trimester (principal)

== ENCOUNTER → 2018-11-05 | Outpatient (CLI) | payer OTHER | LOC: M LAB 14:57 | PROVIDERS: ATTEND Advanced Practice Midwife | DX: Z34.82 Encounter for supervision of other normal pregnancy, second trimester (principal); Z3A.18 18 weeks gestation of pregnancy; Z53.9 Procedure and treatment not carried out, unspecified reason ==

== ENCOUNTER → 2019-01-15 | Outpatient (CLI) | payer OTHER ==
[~2019-01-15] MED LIST changes: +IMUR50TA10 PO; -IMUR50TA7 PO; +PRED-351 PO; -PRED10TA PO
--- NOTE | 2019-01-16 05:41 | REP ---
Clinical: Anatomical evaluation. Comparison: 11/03/2018 . Findings: Examination demonstrates a single live intrauterine in cephalic presentation. motion is identified by technologist. Placenta is noted anterior and grade grade III without evidence for placenta previa or abruption. Amniotic fluid volume is normal. Cervix measures 3.5 cm in length and appears closed. No evidence for nuchal cord. Gestational age by LMP 28 weeks 3 days with BOBBI 04/06/2019 . Gestational age by current measurements 29 weeks 3 days with BOBBI 03/30/2019 . FHR equals 133 beats per minute. BPD 7.5 cm 29 weeks 6 days HC 27.2 cm 29 weeks 5 days AC 24.7 cm 29 weeks 0 days FL 5.5 cm 29 weeks 1 day HL 5.1 cm 0.9 weeks 5 days HC/AC ratio 1.10 Estimated weight 1343 grams ( 60th percentile). Amniotic fluid index: 14.3 cm Umbilical cord SD ratio: 2.62 Impression: Single live intrauterine in cephalic presentation demonstrating appropriate interval growth. No gross abnormalities are identified. Electronically Signed by Erasto Morris MD 01/16/2019 05:33 A
== END ==
LOC: M RAD 09:30
PROVIDERS: ATTEND Advanced Practice Midwife
DX: O99.612 Diseases of the digestive system complicating pregnancy, second trimester (principal); Z3A.29 29 weeks gestation of pregnancy

== ENCOUNTER → 2019-01-16 | Outpatient (CLI) | payer OTHER ==
[2019-01-16 11:23] LABS: BASO # 0.1 10^3/uL (0.0-0.2); BASO % 0.5 % (0.0-1.0); EOS # 0.2 10^3/uL (0.0-0.50); EOS % 1.8 % (0.0-3.0); HEMATOCRIT 36.8 % (36.0-47.0); HEMOGLOBIN 11.8 g/dl (12.0-15.5); LYMPH # 1.7 10^3/uL (1.5-6.5); LYMPH % 13.8 % (24.0-44.0); MEAN CORPUSCULAR HEMOGLOBIN 30.1 pg (27.0-33.0); MEAN CORPUSCULAR HGB CONC 32.1 g/dl (32.0-36.5); MEAN CORPUSCULAR VOLUME 93.9 fl (80.0-96.0); MONO # 0.9 10^3/uL (0.0-0.8); MONO % 6.8 % (0.0-5.0); NEUTROPHILS # 9.5 10^3/uL (1.8-7.7); NEUTROPHILS % 75.7 % (36.0-66.0); PLATELET COUNT, AUTOMATED 280 10^3/uL (150-450); RED BLOOD COUNT 3.92 10^6/uL (4.00-5.40); WHITE BLOOD COUNT 12.6 10^3/uL (4.0-10.0)
== END ==
LOC: M LAB 09:24
PROVIDERS: ATTEND Advanced Practice Midwife
DX: O98.412 Viral hepatitis complicating pregnancy, second trimester (principal); Z3A.00 Weeks of gestation of pregnancy not specified

== ENCOUNTER → 2019-01-16 | Outpatient (CLI) | payer OTHER ==
[2019-01-16 10:25] LABS: HEMATOCRIT 35.7 % (36.0-47.0); HEMOGLOBIN 11.7 g/dl (12.0-15.5); MEAN CORPUSCULAR HEMOGLOBIN 30.4 pg (27.0-33.0); MEAN CORPUSCULAR HGB CONC 32.8 g/dl (32.0-36.5); MEAN CORPUSCULAR VOLUME 92.7 fl (80.0-96.0); PLATELET COUNT, AUTOMATED 290 10^3/uL (150-450); RED BLOOD COUNT 3.85 10^6/uL (4.00-5.40); WHITE BLOOD COUNT 12.9 10^3/uL (4.0-10.0)
[2019-01-16 10:59] LABS: ALBUMIN 2.3 GM/DL (3.2-5.2); ALT/SGPT 127 U/L (12-78); BILIRUBIN,TOTAL 0.5 MG/DL (0.2-1.0); BLOOD UREA NITROGEN 7 MG/DL (7-18); C REACTIVE PROTEIN QUANTITATIV 1.06 MG/DL (0.00-0.30); CALCIUM LEVEL 8.4 MG/DL (8.5-10.1); CARBON DIOXIDE LEVEL 26 MEQ/L (21-32); CHLORIDE LEVEL 106 MEQ/L (98-107); CREATININE FOR GFR 0.51 MG/DL (0.55-1.30); GLOMERULAR FILTRATION RATE > 60.0 (>60); GLUCOSE, FASTING 91 MG/DL (70-100); IRON (FE) 58 UG/DL (50-170); PERCENT SATURATION 9.2 % (13.2-45.0); POTASSIUM SERUM 4.2 MEQ/L (3.5-5.1); SODIUM LEVEL 138 MEQ/L (136-145); TOTAL IRON BINDING CAPACITY 631 UG/DL (250-450); TOTAL PROTEIN 6.3 GM/DL (6.4-8.2)
== END ==
LOC: M LAB 09:29
PROVIDERS: ATTEND Internal Medicine Gastroenterology
DX: K50.10 Crohn's disease of large intestine without complications (principal); B17.10 Acute hepatitis C without hepatic coma; H57.12 Ocular pain, left eye; R10.31 Right lower quadrant pain; K21.9 Gastro-esophageal reflux disease without esophagitis; Z33.1 Pregnant state, incidental; D50.9 Iron deficiency anemia, unspecified; R94.5 Abnormal results of liver function studies

== ENCOUNTER → 2019-02-13 | Outpatient (CLI) | payer OTHER ==
--- NOTE | 2019-02-13 14:58 | REP ---
REASON: Followup. Multiple ultrasonographic images of the gravid uterus show a single living intrauterine gestation in the cephalic presentation. Doppler interrogation of the heart shows a heart rate of 153 beats per minute. The placenta is anterior and not low lying. The subjective amniotic fluid volume is within normal limits. The cervix measures 3.1 cm in length and is closed. Evaluation of the maternal adnexal spaces showed no abnormalities. The umbilical cord was seen draping over the neck. A complete nuchal cord cannot be ruled out. Doppler interrogation of umbilical artery shows an AB ratio of 2.32. This is within the normal range. The calculated amniotic fluid index is 11.6 which is in the normal range of the 8.4 to 24.4. BPD 8.4 cm = 33 weeks 5 days HC 30.6 cm = 34 weeks 1 day AC 29.0 cm = 33 weeks 0 days FL 6.3 cm = 32 weeks 3 days The estimated weight is 2106 grams which is at the 52nd percentile for a 32 weeks 4 day gestational age. A complete anatomical screening was performed on 11/03/2018 at 18 weeks 2 day gestational age. That examination showed no anomalies. IMPRESSION: Single living intrauterine gestation as described above and estimated gestational age of 32 weeks 6 days via composite criteria and estimated date of delivery of 04-04-19 by today's exam. Electronically Signed by Fernando Ashley DO 02/13/2019 04:47 P
== END ==
LOC: M RAD 09:43
PROVIDERS: ATTEND Obstetrics & Gynecology
DX: O99.613 Diseases of the digestive system complicating pregnancy, third trimester (principal); K50.90 Crohn's disease, unspecified, without complications; Z3A.32 32 weeks gestation of pregnancy

== ENCOUNTER → 2019-02-17 | Outpatient (CLI) | payer OTHER ==
[2019-02-17 14:28] LABS: ALBUMIN 2.4 GM/DL (3.2-5.2); BILIRUBIN,DIRECT 0.2 MG/DL (0.0-0.2); BILIRUBIN,TOTAL 0.6 MG/DL (0.2-1.0); TOTAL PROTEIN 6.6 GM/DL (6.4-8.2)
[2019-02-19 14:10] LABS: HEPATITIS C QUANTITATION 3716570 IU/mL (.)
== END ==
LOC: M WUC 11:36
PROVIDERS: ATTEND Internal Medicine Infectious Disease
DX: B18.2 Chronic viral hepatitis C (principal)

== ENCOUNTER → 2019-03-05 | Outpatient (CLI) | payer OTHER ==
--- NOTE | 2019-03-05 09:44 | REP ---
Clinical: Growth evaluation. Comparison: 02/13/2019 . Findings: Examination demonstrates a single live intrauterine in cephalic presentation. motion is identified by technologist. Placenta is noted anterior and grade three without evidence for placenta previa or abruption. Amniotic fluid volume is normal. Cervix measures 3.3 cm in length and appears closed. Nuchal cord cannot be excluded. Gestational age by LMP 35 weeks 3 days with BOBBI 04/06/2019 . Gestational age by current measurements 35 weeks 2 days with BOBBI 04/07/2019 . FHR equals 140 beats per minute. BPD 9.1 cm 37 weeks 0 days HC 33.3 cm 38 weeks 0 days AC 32.0 cm 35 weeks 6 days FL 6.4 cm 33 weeks 1 day HL 5.6 cm 32 weeks 3 days HC/AC ratio 1.04 Estimated weight 2697 grams ( 51st percentile). Amniotic fluid index: 10.0 cm Umbilical cord SD ratio: 2.50 Impression: 1. Single live intrauterine in cephalic presentation demonstrating appropriate interval growth. 2. Nuchal cord cannot be excluded. 3. No gross abnormalities are identified. Electronically Signed by Erasto Morris MD 03/05/2019 09:36 A
== END ==
LOC: M RAD 08:09
PROVIDERS: ATTEND Advanced Practice Midwife
DX: O99.613 Diseases of the digestive system complicating pregnancy, third trimester (principal); Z3A.35 35 weeks gestation of pregnancy

== ENCOUNTER → 2019-03-06 | Outpatient (REF) | payer OTHER | LOC: M LAB REF 13:09 | PROVIDERS: ATTEND Advanced Practice Midwife | DX: O99.613 Diseases of the digestive system complicating pregnancy, third trimester (principal) ==

== ENCOUNTER → 2019-03-10 | Outpatient (CLI) | payer OTHER ==
[~2019-03-10] MED LIST changes: +APRI0.37 PO; +FOLI1TAB11 PO; +PRENTAB9 PO; +SUBO8MIS SL
== END ==
LOC: M WUC 11:16
PROVIDERS: ATTEND Advanced Practice Midwife
DX: O99.613 Diseases of the digestive system complicating pregnancy, third trimester (principal); Z3A.00 Weeks of gestation of pregnancy not specified

== ENCOUNTER → 2019-03-26 | Outpatient (CLI) | payer OTHER ==
--- NOTE | 2019-03-26 09:12 | REP ---
Third trimester obstetric ultrasound: There is a single intrauterine gestation in a vertex presentation. There is movement and cardiac activity. heart rate is 0.2 beats per minute. The placenta is anterior. There is no placenta previa or abruptio. Placenta is grade III. The amniotic fluid volume subjectively is normal. The amniotic fluid index is 14.0 (7.3 - 23.4). By today's ultrasound gestational age is 37 weeks 3 days/BOBBI 04/13/2019. By the first ultrasound gestational age is 38 weeks 5 days/BOBBI 04/04/2019. By LMP gestational age is 38 weeks 3 days/BOBBI 04/06/2019. On the prior studies, the spine is not optimally demonstrated. On the study today the spine is optimally demonstrated. There are no spine anomalies. Umbilical artery Doppler assessment: S/D ratio 2.33 (2.30-3.30) Resistive Index 0.57 (0.59-0.75 Diastolic Velocity 21.3 (>10 cm/sec) Electronically Signed by Monty Fontana MD 03/26/2019 09:04 A
== END ==
LOC: M RAD 07:36
PROVIDERS: ATTEND Obstetrics & Gynecology
DX: O99.613 Diseases of the digestive system complicating pregnancy, third trimester (principal); K50.90 Crohn's disease, unspecified, without complications

== ENCOUNTER 2019-03-30 20:45 | Inpatient (IN) | payer OTHER ==
[~2019-03-30] VITALS: Ht 160 cm; Wt 59.9 kg
[2019-03-30] VITALS (17 sets, daily range): BP systolic 105–141; BP diastolic 62–90
[2019-03-30] MEDS ORDERED: LACTATED RINGER'S 1000 ML IV STA (21:37)
[2019-03-30 21:59] LABS: HEMATOCRIT 38.3 % (36.0-47.0); HEMOGLOBIN 12.8 g/dl (12.0-15.5); MEAN CORPUSCULAR HEMOGLOBIN 29.8 pg (27.0-33.0); MEAN CORPUSCULAR HGB CONC 33.4 g/dl (32.0-36.5); MEAN CORPUSCULAR VOLUME 89.1 fl (80.0-96.0); PLATELET COUNT, AUTOMATED 331 10^3/uL (150-450); WHITE BLOOD COUNT 14.6 10^3/uL (4.0-10.0)
[2019-03-30] MEDS ORDERED: FENTANYL 2MCG/ML ROPIVACAINE 0.2% IN 0.9% NACL 100ML IVBAG As Ordered ONE (22:27)
[2019-03-30] MEDS ORDERED: LACTATED RINGER'S 1000 ML IV PRN (23:15)
[2019-03-30] MEDS ORDERED: FENTANYL/ROPIVACAINE/NACL BAG 100 ML EPIDURAL SCH (23:15)
[2019-03-30] MEDS ORDERED: EPIDURAL/PCA KEYS XX PRN (23:15)
[2019-03-30] MEDS ORDERED: EPIDURAL COMMENT XX SCH (23:15)
[2019-03-30] MEDS ORDERED: diphenhydrAMINE INJ 50MG/ML VIAL (J1200) IV PRN (23:15)
[2019-03-30] MEDS ORDERED: NALOXONE INJ 0.4 MG/1 ML VIAL (J2310) IV PRN (23:15)
[2019-03-30] MEDS ORDERED: ONDANSETRON 4MG/2ML VIAL (J2405) IV PRN (23:15)
[2019-03-30] MEDS ORDERED: ePHEDrine SULFATE 25 MG/5 ML(5MG/ML) SYRINGE IV PRN (23:15)
[2019-03-30] MEDS ORDERED: REFRIGERATOR IV KEYS XX PRN (23:15)
--- NOTE | 2019-03-30 23:46 | IPNPDOC ---
Obstetrical Progress Note Date of Service Mar 30, 2019 Subjective Patient she reports she is more comfortable with her epidural. Objective Vital Signs Date Time Temp Pulse Resp B/P (MAP) Pulse Ox O2 Delivery O2 Flow Rate FiO2 03/30/19 20:56 98.7 102 14 136/82 (100) Assessment Heart Rate (FHR): 130 Variability: Moderate Accelerations: Positive Decelerations: None Heart Rate Tracing: Category I Tocometer Contractions: Yes Frequency: every 2-5 min. Sterile Vaginal Examination Dilation: 7 cm Effacement (%): 100% Station: 0 Postion/Presentation: Cephalic presentation Assessment and Plan Status: Reassuring Group B Streptococcus: Negative Anticipate: Vaginal Delivery Additional Comments AROM to a moderate amount of clear fluid. RADHA MIKE CNM Mar 30, 2019 23:45
[2019-03-31] VITALS (22 sets, daily range): BP systolic 103–126; BP diastolic 58–79
[2019-03-31] MEDS ORDERED: OXYTOCIN 30 UNITS IN 0.9% NaCl 500ML IV BAG (J2590) As Ordered ONE (01:05)
[2019-03-31 01:29] LABS: CORD GAS ABE A -12.5; CORD GAS HCO3 A 20.1 MEQ/L; CORD GAS O2 SAT A 50.1 %; CORD GAS PCO2 A 78.9 mmHg; CORD GAS PH A 7.025 UNITS; CORD GAS PO2 A 29.4 mmHg; CORD GAS TCO2 A 22.6 MEQ/L
[2019-03-31 01:32] LABS: CORD GAS ABE V -9.9; CORD GAS HCO3 V 17.8 MEQ/L; CORD GAS O2 SAT V 68.3 %; CORD GAS PCO2 V 45.5 mmHg; CORD GAS PH V 7.211 UNITS; CORD GAS PO2 V 31.7 mmHg; CORD GAS SBC V 16.1 MEQ/L; CORD GAS TCO2 V 19.2 MEQ/L
[2019-03-31] MEDS ORDERED: OXYTOCIN DRIP 30 UNITS in APPROPRIATE DILUENT 1 EA IV SCH (02:01)
[2019-03-31] MEDS ORDERED: MEASLES,MUMPS,RUBELLA VACCINE INJ (MMR-II) (90707) SC SCH (02:15)
[2019-03-31] MEDS ORDERED: DIBUCAINE 1% OINTMENT 30GM TOP PRN (02:15)
[2019-03-31] MEDS ORDERED: DOCUSATE SODIUM 100 MG CAP PO PRN (02:15)
[2019-03-31] MEDS ORDERED: RHOGAM 300 MCG (1500 IU) INJ (J2790) IM SCH (02:15)
[2019-03-31] MEDS ORDERED: IBUPROFEN 600 MG TAB PO PRN (02:15)
[2019-03-31] MEDS ORDERED: ACETAMINOPHEN 500 MG TAB PO PRN (02:15)
[2019-03-31] MEDS ORDERED: ANUSOL HC CREAM 30GM TOP PRN (02:15)
[2019-03-31] MEDS ORDERED: METHYLERGONOVINE MALEATE 0.2 MG TAB PO PRN (02:15)
[2019-03-31] MEDS ORDERED: ACETAMINOPHEN TAB 650MG DOSE (2X325MG) PO PRN (02:15)
[2019-03-31] MEDS: IBUPROFEN 800 MG TAB PO PRN (03:03)
[2019-03-31] MEDS: BUPRENORPHINE/NALOXONE 8-2MG SUBLINGUAL TABLET(SUBOXONE) SL SCH (09:00)
[2019-03-31] MEDS: PRENATAL VITAMINS CHEWABLE TABLET PO SCH (09:00)
[2019-03-31] MEDS ORDERED: LOPERAMIDE 2 MG CAP PO PRN (12:30)
--- NOTE | 2019-03-31 17:13 | HPE ---
DATE OF ADMISSION: 03/30/2019 HISTORY OF PRESENT ILLNESS: Patient is a 23-year-old female who is a 3, para 0-2-0 at 39 weeks gestation with an estimated date of delivery (BOBBI) of 04/06/2019 based off of her first-trimester ultrasound. Patient initiated care in her first trimester with [facility]. Her has been complicated by a diagnosis of hepatitis C, history of intravenous (IV) drug abuse with her last use of heroin being in April 2018. Patient is taking Suboxone 16 mg daily. She is also complicated by a history of Crohn's disease with a history of exploratory laparoscopy for resection of her small bowel. Her Crohn's has been controlled with mesalamine. She presents to labor and delivery today with complaints of contractions and possible rupture of membrane. She reports active movements. She denies vaginal bleeding. PAST MEDICAL HISTORY: 1. Crohn's disease. 2. Hepatitis C. SURGICAL HISTORY: Small bowel resection with 10 cm removed. FAMILY HISTORY: Noncontributory. SOCIAL HISTORY: Patient denies being a smoker. She denies alcohol abuse or use prior to or during . She does have a history of heroin addiction and is currently in recovery and taking 16 mg of Suboxone daily. PAST PREGNANCIES: October 2011 patient had an . March 2018 she had a miscarriage. LABORATORIES: Her blood type is A positive. Her antibody screen is negative. Her hemoglobin and hematocrit in her first trimester were 11.7 and 37.4 with platelets of 311. She is immune to rubella. VDRL is nonreactive. Urine culture is no growth. Hepatitis B surface antigen is negative. HIV is negative. Hepatitis C is reactive. Gonorrhea and chlamydia are both negative. Her 1-hour glucose tolerance test was 75 with her hemoglobin and hematocrit at that time being 11.8 and 36.8 with platelets of 289. Her HIV in her third trimester was negative. GBS is negative. Her liver enzymes are elevated and have been during her . Hepatitis A is also negative. heart rate 125, moderate variability. Positive accelerations. No decelerations. Contractions are every 1-7 minutes. Sterile vaginal exam (SVE) is 6 cm dilated, 100% effaced. Bulging bag of membranes, 0 station. VITAL SIGNS: Blood pressure 136/82, heart rate 102, respiratory rate 14, temperature 98.7. PHYSICAL ASSESSMENT: GENERAL: Alert and oriented times three. RESPIRATORY: Regular rate with no use of accessory muscles. ABDOMEN: Gravid. Nontender to touch. Cephalic presentation noted via vaginal exam and Georgi's maneuver. LOWER EXTREMITIES: No edema and no clonus noted. ASSESSMENT: Intrauterine (IUP) at 39 weeks gestation, active labor. Positive hepatitis C. Negative GBS. Category 1 heart rate tracing. PLAN: Admit patient to labor and delivery. Out of bed ad sakina. Clear liquid diet. Saline lock and labs per unit protocol. Patient desires epidural. Anesthesia consult per patient's request. Lactated Ringer's 800 mL to be given prior to epidural. Anticipate cervical change and spontaneous vaginal delivery.
--- NOTE | 2019-04-01 00:17 | DN ---
DATE: 03/31/2019 DELIVERY DATE AND TIME: 03/31/2019 at 0114. DELIVERY STATUS: Delivered. Spontaneous vaginal delivery. PROVIDER: Ryann Cedeño CNM ANESTHESIA: Epidural. ESTIMATED BLOOD LOSS: 350 mL. FINDINGS: Male, 7 pounds, 4 ounces, 3290 grams, multiple variable decelerations, transitional meconium, urethral cyst, Crohn disease stable with mesalamine, positive hepatitis C, history of IV drug use, currently stable with Suboxone. The patient is a 23-year-old female who is now a 3, para 1-0-2-1, who presented to labor and delivery in active labor. The patient progressed. Received an epidural for pain management. She progressed to fully dilated at 0057 and pushed to a living male in the right occiput anterior (ARLEY) positive with restitution to restitution to right occiput transverse (ROT) at 0114. The anterior shoulder delivered with ease and the corpus immediately followed. The baby was placed on the maternal abdomen, active and crying with stimulation. Cord gases were obtained due to multiple variable decelerations. Arterial cord gas was 7.025 with the arterial base access of -12.5. The venous cord blood was 7.211 with the base access of net -9.9. The cord was clamped times 2 and cut by the patient. A three vessel cord was noted. The placenta delivered spontaneously and intact at 0118. Uterine hemostasis was achieved via rapid infusion by the Pitocin and fundal massage. The perineum, cervix, vagina was inspected and found to have bilateral labial lacerations. The right labial laceration was repaired with a 4.0 Vicryl Rapide RB1. The mom plans to breast feed. She is unsure of what she will be naming her . All counts of instruments and sponges were correct.
[2019-04-01 06:00] VITALS: BP 111/62
--- NOTE | 2019-04-01 07:26 | NUR ---
PPD#1 S: Doing well w/o complaints. + voids, + ambulation. O: vss, AF gen: well appearing abd: nttp, FF ext: neg calf tenderness A/P: PPD#1 s/p - recovering in stable condition -cont routine care -d/c plans for tomorrow Maribel Miranda MD
[2019-04-01] MEDS: BUPRENORPHINE/NALOXONE 8-2MG SUBLINGUAL TABLET(SUBOXONE) SL SCH (07:39)
[2019-04-01] MEDS: PRENATAL VITAMINS CHEWABLE TABLET PO SCH (07:39)
[2019-04-01 18:00] VITALS: BP 115/71
[2019-04-02 05:43] VITALS: BP 117/60
[2019-04-02] MEDS: IBUPROFEN 800 MG TAB PO PRN (08:02)
[2019-04-02] MEDS: PRENATAL VITAMINS CHEWABLE TABLET PO SCH (08:02)
[2019-04-02] MEDS: BUPRENORPHINE/NALOXONE 8-2MG SUBLINGUAL TABLET(SUBOXONE) SL SCH (08:02)
== END 2019-04-02 17:20 | disposition home or self-care (01) | DRG 560 ==
LOC: M LDO 20:45 → M LDI 21:48 → M OBS 03-31 03:51
PROVIDERS: ADMIT Advanced Practice Midwife; ATTEND Advanced Practice Midwife
PROC: 10E0XZZ Delivery of Products of Conception, External Approach (ICD-10-PCS; principal; 2019-03-31)
PROC: 0HQ9XZZ Repair Perineum Skin, External Approach (ICD-10-PCS; 2019-03-31)
DX: O98.42 Viral hepatitis complicating childbirth (principal); B19.20 Unspecified viral hepatitis C without hepatic coma; Z3A.39 39 weeks gestation of pregnancy; Z37.0 Single live birth; O99.62 Diseases of the digestive system complicating childbirth; K50.90 Crohn's disease, unspecified, without complications; O76 Abnormality in fetal heart rate and rhythm complicating labor and delivery; O70.0 First degree perineal laceration during delivery; O99.324 Drug use complicating childbirth; F11.20 Opioid dependence, uncomplicated

== ENCOUNTER → 2019-06-09 | Outpatient (REF) | payer OTHER ==
[~2019-06-09] MED LIST changes: +RANI-356 PO; -RANI1TAB6 PO
[2019-06-10 19:38] LABS: APPEARANCE, URINE CLOUDY (CLEAR); BACTERIA, URINE AUTO NEGATIVE (NEGATIVE); BILIRUBIN, URINE AUTO 1+ (NEGATIVE); BLOOD, URINE BLOOD NEGATIVE (NEGATIVE); CALCIUM OXALATE CRYSTALS SMALL; COLOR, URINE YELLOW (YELLOW); GLUCOSE, URINE (UA) AUTO NEGATIVE (NEGATIVE); KETONE, URINE AUTO NEGATIVE (NEGATIVE); LEUKOCYTE ESTERASE, URINE AUTO 2+ (NEGATIVE); MUCUS, URINE SMALL (NEGATIVE); NITRITE, URINE AUTO NEGATIVE (NEGATIVE); PROTEIN, URINE AUTO NEGATIVE (NEGATIVE); RBC, URINE AUTO 3 /HPF (0-3); SPECIFIC GRAVITY URINE AUTO 1.019 (1.002-1.035); SQUAMOUS EPITHELIAL CELL UR AU 18 /HPF (0-6); UROBILINOGEN, URINE AUTO 0.2 mg/dL (0.0-2.0); WBC, URINE AUTO 12 /HPF (0-3)
== END ==
LOC: M SFHCCAPE 14:01
PROVIDERS: ATTEND Physician Assistant
DX: R10.9 Unspecified abdominal pain (principal)

== ENCOUNTER → 2019-06-10 | Outpatient (REF) | payer OTHER ==
[2019-06-10 18:29] LABS: ALBUMIN 3.1 GM/DL (3.2-5.2); ALT/SGPT 71 U/L (12-78); BILIRUBIN,TOTAL 0.7 MG/DL (0.2-1.0); BLOOD UREA NITROGEN 12 MG/DL (7-18); CALCIUM LEVEL 8.6 MG/DL (8.5-10.1); CARBON DIOXIDE LEVEL 26 MEQ/L (21-32); CHLORIDE LEVEL 105 MEQ/L (98-107); CREATININE FOR GFR 0.74 MG/DL (0.55-1.30); GLOMERULAR FILTRATION RATE > 60.0 (>60); GLUCOSE, FASTING 102 MG/DL (70-100); LIPASE 68 U/L (73-393); POTASSIUM SERUM 4.3 MEQ/L (3.5-5.1); SODIUM LEVEL 138 MEQ/L (136-145); TOTAL PROTEIN 7.1 GM/DL (6.4-8.2)
[2019-06-10 18:38] LABS: BASO % 0.5 % (0.0-1.0); EOS # 0.1 10^3/uL (0.0-0.5); EOS % 2.1 % (0.0-3.0); HEMATOCRIT 41.1 % (36.0-47.0); HEMOGLOBIN 12.9 g/dl (12.0-15.5); LYMPH # 1.6 10^3/uL (1.5-5.0); LYMPH % 25.4 % (24.0-44.0); MEAN CORPUSCULAR HEMOGLOBIN 28.4 pg (27.0-33.0); MEAN CORPUSCULAR HGB CONC 31.4 g/dl (32.0-36.5); MEAN CORPUSCULAR VOLUME 90.5 fl (80.0-96.0); MONO # 0.4 10^3/uL (0.0-0.8); MONO % 6.5 % (0.0-5.0); NEUTROPHILS # 4.1 10^3/uL (1.5-8.5); NEUTROPHILS % 65.3 % (36.0-66.0); PLATELET COUNT, AUTOMATED 275 10^3/uL (150-450); RED BLOOD COUNT 4.54 10^6/uL (4.00-5.40); WHITE BLOOD COUNT 6.3 10^3/uL (4.0-10.0)
== END ==
LOC: M SFHCCAPE 10:40
PROVIDERS: ATTEND Physician Assistant
DX: R10.9 Unspecified abdominal pain (principal)

== ENCOUNTER → 2019-06-30 | Outpatient (REF) | payer OTHER ==
[2019-06-30 15:58] LABS: BASO % 0.5 % (0.0-1.0); EOS # 0.2 10^3/uL (0.0-0.5); EOS % 2.3 % (0.0-3.0); HEMATOCRIT 41.9 % (36.0-47.0); HEMOGLOBIN 13.4 g/dl (12.0-15.5); LYMPH # 2.3 10^3/uL (1.5-5.0); LYMPH % 28.1 % (24.0-44.0); MEAN CORPUSCULAR HEMOGLOBIN 28.2 pg (27.0-33.0); MONO # 0.8 10^3/uL (0.0-0.8); NEUTROPHILS # 4.9 10^3/uL (1.5-8.5); NEUTROPHILS % 58.5 % (36.0-66.0); PLATELET COUNT, AUTOMATED 420 10^3/uL (150-450); RED BLOOD COUNT 4.76 10^6/uL (4.00-5.40); WHITE BLOOD COUNT 8.3 10^3/uL (4.0-10.0)
[2019-06-30 16:02] LABS: ALBUMIN 3.5 GM/DL (3.2-5.2); ALT/SGPT 38 U/L (12-78); BILIRUBIN,TOTAL 0.5 MG/DL (0.2-1.0); BLOOD UREA NITROGEN 13 MG/DL (7-18); CALCIUM LEVEL 9.2 MG/DL (8.5-10.1); CARBON DIOXIDE LEVEL 30 MEQ/L (21-32); CHLORIDE LEVEL 103 MEQ/L (98-107); CREATININE FOR GFR 0.73 MG/DL (0.55-1.30); GLOMERULAR FILTRATION RATE > 60.0 (>60); GLUCOSE, FASTING 88 MG/DL (70-100); HCG, SERUM QUALITATIVE NEGATIVE (NEGATIVE); POTASSIUM SERUM 4.3 MEQ/L (3.5-5.1); SODIUM LEVEL 138 MEQ/L (136-145); TOTAL PROTEIN 7.6 GM/DL (6.4-8.2)
[2019-07-05 00:06] LABS: HEPATITIS C QUANTITATION 482500 IU/mL (.); HEPATITIS C VIRUS GENOTYPE 3 (.)
== END ==
LOC: M SFHCPLAZ 13:42
PROVIDERS: ATTEND Internal Medicine Infectious Disease
DX: B18.2 Chronic viral hepatitis C (principal)

== ENCOUNTER → 2019-09-24 | Outpatient (REF) | payer OTHER ==
[~2019-09-24] MED LIST changes: -RANI-356 PO; +RANI-397 PO
[2019-09-24 11:55] LABS: BASO # 0.1 10^3/uL (0.0-0.2); BASO % 0.7 % (0.0-1.0); EOS # 0.3 10^3/uL (0.0-0.5); HEMATOCRIT 47.5 % (36.0-47.0); HEMOGLOBIN 14.4 g/dl (12.0-15.5); LYMPH # 2.2 10^3/uL (1.5-5.0); MEAN CORPUSCULAR HEMOGLOBIN 27.1 pg (27.0-33.0); MEAN CORPUSCULAR HGB CONC 30.3 g/dl (32.0-36.5); MEAN CORPUSCULAR VOLUME 89.5 fl (80.0-96.0); MONO # 0.5 10^3/uL (0.0-0.8); MONO % 6.7 % (0.0-5.0); NEUTROPHILS # 4.4 10^3/uL (1.5-8.5); NEUTROPHILS % 59.3 % (36.0-66.0); PLATELET COUNT, AUTOMATED 346 10^3/uL (150-450); RED BLOOD COUNT 5.31 10^6/uL (4.00-5.40); WHITE BLOOD COUNT 7.5 10^3/uL (4.0-10.0)
[2019-09-24 12:27] LABS: HCG, SERUM QUALITATIVE NEGATIVE (NEGATIVE)
[2019-09-24 12:30] LABS: ALBUMIN 3.4 GM/DL (3.2-5.2); ALT/SGPT 22 U/L (12-78); BILIRUBIN,TOTAL 0.6 MG/DL (0.2-1.0); BLOOD UREA NITROGEN 15 MG/DL (7-18); CARBON DIOXIDE LEVEL 30 MEQ/L (21-32); CHLORIDE LEVEL 102 MEQ/L (98-107); CREATININE FOR GFR 0.72 MG/DL (0.55-1.30); GLOMERULAR FILTRATION RATE > 60.0 (>60); GLUCOSE, FASTING 72 MG/DL (70-100); POTASSIUM SERUM 4.3 MEQ/L (3.5-5.1); SODIUM LEVEL 140 MEQ/L (136-145); TOTAL PROTEIN 7.6 GM/DL (6.4-8.2)
[2019-09-29 08:06] LABS: HEPATITIS C QUANTITATION HCV Not Detected IU/mL (.)
== END ==
LOC: M SFHCPLAZ 10:21
PROVIDERS: ATTEND Internal Medicine Infectious Disease
DX: B18.2 Chronic viral hepatitis C (principal)

== ENCOUNTER → 2020-04-29 | Outpatient (CLI) | payer OTHER | LOC: M LABSMTC 12:52 | PROVIDERS: ATTEND Anesthesiology | DX: Z01.812 Encounter for preprocedural laboratory examination (principal); Z20.828 Contact with and (suspected) exposure to other viral communicable diseases ==

== ENCOUNTER 2020-05-04 13:30 | Day surgery (SDC) | payer OTHER ==
[~2020-05-04] VITALS: Ht 160 cm; Wt 44.3 kg
[2020-05-04] MEDS ORDERED: BUPIVACAINE HCL 0.25% 30ML VIAL As Ordered ONE (14:24)
[2020-05-04] MEDS ORDERED: VASOPRESSIN INJ 20 UNITS/ML VIAL As Ordered ONE (14:24)
[2020-05-04 14:25] LABS: HEMATOCRIT 42.2 % (36.0-47.0); HEMOGLOBIN 13.4 g/dl (12.0-15.5); MEAN CORPUSCULAR HEMOGLOBIN 27.2 pg (27.0-33.0); MEAN CORPUSCULAR HGB CONC 31.8 g/dl (32.0-36.5); MEAN CORPUSCULAR VOLUME 85.8 fl (80.0-96.0); PLATELET COUNT, AUTOMATED 386 10^3/uL (150-450); RED BLOOD COUNT 4.92 10^6/uL (4.00-5.40); WHITE BLOOD COUNT 6.7 10^3/uL (4.0-10.0)
[2020-05-04] MEDS ORDERED: ONDANSETRON 4MG/2ML VIAL As Ordered ONE (14:53)
[2020-05-04] MEDS ORDERED: LIDOCAINE 2% 100MG/5ML SDV (FOR ANES.) As Ordered ONE (14:53)
[2020-05-04] MEDS ORDERED: propofoL 200 MG/20 ML VIAL As Ordered ONE (14:53)
[2020-05-04] MEDS ORDERED: KETOROLAC 60MG 2ML VIAL As Ordered ONE (14:53)
[2020-05-04] MEDS ORDERED: dexameTHASONE 4 MG/ML 1ML VIAL (J1100 PER 1MG) As Ordered ONE (14:53)
[2020-05-04 16:05] VITALS: BP 110/62
[2020-05-04] MEDS ORDERED: LR 1,000 ML IV SCH ×2 (16:15→16:30)
[2020-05-04] MEDS ORDERED: ACETAMINOPHEN 500 MG TAB PO ONE (16:30)
--- NOTE | 2020-06-16 10:25 | RO ---
DATE OF OPERATION: 05/04/2020. PREOPERATIVE DIAGNOSIS: Skenes gland cyst. POSTOPERATIVE DIAGNOSIS: Skenes gland cyst. PROCEDURE: Marsupialization of skenes gland cyst. SURGEON: Mario Vale MD ANESTHESIA: LMA. ESTIMATED BLOOD LOSS: 20 cc. URINE OUTPUT: 5 cc. FINDINGS: A 3 cm skenes gland cyst near the urethra in the midline. DESCRIPTION OF PROCEDURE: The patient was brought to the Operating Room where general anesthesia was induced. She was prepped and draped in sterile fashion in the dorsal lithotomy position. The area around the skenes gland cyst was injected with quarter percent Marcaine. A total of 6 cc was utilized. A vertical incision was made in the midline of the cyst. The edge of the cyst was grasped with a pickup clamp and Metzenbaum scissors were used to dissect the cyst from the overlying vagina. This was resected circumferentially. The majority of the cyst gland was excised. The remaining small portion of the cyst wall was then sutured to the vagina in a running fashion. The bladder was emptied with a catheter at the end of the procedure. Good hemostasis was noted. Sponge, needle counts and instruments were correct. MTDD
== END 2020-05-04 16:24 | disposition home or self-care (01) ==
LOC: M SDC 13:30
PROVIDERS: ATTEND Specialist
DX: N36.8 Other specified disorders of urethra (principal); F17.218 Nicotine dependence, cigarettes, with other nicotine-induced disorders; K21.9 Gastro-esophageal reflux disease without esophagitis; F41.9 Anxiety disorder, unspecified; K50.90 Crohn's disease, unspecified, without complications; Z79.891 Long term (current) use of opiate analgesic
CPT/HCPCS: 53270; 85027; 88305; J1100; J1885; J2405

== ENCOUNTER → 2020-06-06 | Outpatient (REF) | payer OTHER ==
[2020-06-07 21:17] LABS: CLOSTRIDIUM DIFFICILE PCR NEGATIVE (NEGATIVE)
== END ==
LOC: M LABDRAWC 15:53
PROVIDERS: ATTEND Physician Assistant
DX: R10.31 Right lower quadrant pain (principal); D50.9 Iron deficiency anemia, unspecified; K52.9 Noninfective gastroenteritis and colitis, unspecified; K50.10 Crohn's disease of large intestine without complications; B19.20 Unspecified viral hepatitis C without hepatic coma

== ENCOUNTER → 2020-06-07 | Outpatient (REF) | payer OTHER ==
[2020-06-07 18:09] LABS: HEMATOCRIT 39.2 % (36.0-47.0); MEAN CORPUSCULAR HEMOGLOBIN 26.7 pg (27.0-33.0); MEAN CORPUSCULAR HGB CONC 30.6 g/dl (32.0-36.5); MEAN CORPUSCULAR VOLUME 87.1 fl (80.0-96.0); PLATELET COUNT, AUTOMATED 373 10^3/uL (150-450); WHITE BLOOD COUNT 10.1 10^3/uL (4.0-10.0)
[2020-06-07 19:01] LABS: ERYTHROCYTE SEDIMENTATION RATE 7 mm/hr (0-20)
[2020-06-07 19:28] LABS: HCG, SERUM QUALITATIVE NEGATIVE (NEGATIVE)
[2020-06-07 19:35] LABS: ALBUMIN 2.7 GM/DL (3.2-5.2); ALT/SGPT 17 U/L (12-78); BILIRUBIN,TOTAL 0.5 MG/DL (0.2-1.0); BLOOD UREA NITROGEN 12 MG/DL (7-18); C REACTIVE PROTEIN QUANTITATIV 0.68 MG/DL (0.00-0.30); CARBON DIOXIDE LEVEL 29 MEQ/L (21-32); CHLORIDE LEVEL 107 MEQ/L (98-107); CREATININE FOR GFR 0.68 MG/DL (0.55-1.30); FERRITIN 43 NG/ML (8-252); GLOMERULAR FILTRATION RATE > 60.0 (>60); GLUCOSE, FASTING 76 MG/DL (70-100); IRON (FE) 41 UG/DL (50-170); PERCENT SATURATION 15.1 % (13.2-45.0); POTASSIUM SERUM 5.8 MEQ/L (3.5-5.1); SODIUM LEVEL 139 MEQ/L (136-145); TOTAL IRON BINDING CAPACITY 271 UG/DL (250-450); TOTAL PROTEIN 6.1 GM/DL (6.4-8.2)
[2020-06-08 13:34] LABS: TOTAL 25(OH) VITAMIN D 23.4 NG/ML (30.0-100.0)
[2020-06-08 13:39] LABS: VITAMIN B12 LEVEL 419 PG/ML (247-911)
[2020-06-08 13:46] LABS: HEPATITIS B SURFACE ANTIGEN NEGATIVE (NEGATIVE)
[2020-06-08 14:12] LABS: HEPATITIS B CORE ANTIBODY IGM NEGATIVE (NEGATIVE)
[2020-06-09 23:07] LABS: HEPATITIS B CORE ANTIBODY IGG Negative (Negative); HEPATITIS C QUANTITATION HCV Not Detected IU/mL (.)
== END ==
LOC: M LABDRAWC 15:48
PROVIDERS: ATTEND Physician Assistant
DX: K50.10 Crohn's disease of large intestine without complications (principal); K52.9 Noninfective gastroenteritis and colitis, unspecified; R10.31 Right lower quadrant pain; D50.9 Iron deficiency anemia, unspecified; B19.20 Unspecified viral hepatitis C without hepatic coma

== ENCOUNTER 2020-06-08 19:05 | Emergency (ER) | payer OTHER ==
[~2020-06-08] VITALS: Ht 160 cm; Wt 44.1 kg
[2020-06-08 20:24] LABS: BLOOD UREA NITROGEN 13 MG/DL (7-18); CALCIUM LEVEL 8.5 MG/DL (8.5-10.1); CARBON DIOXIDE LEVEL 30 MEQ/L (21-32); CHLORIDE LEVEL 106 MEQ/L (98-107); CREATININE FOR GFR 0.65 MG/DL (0.55-1.30); GLOMERULAR FILTRATION RATE > 60.0 (>60); GLUCOSE, FASTING 106 MG/DL (70-100); POTASSIUM SERUM 4.1 MEQ/L (3.5-5.1); SODIUM LEVEL 138 MEQ/L (136-145)
[2020-06-08 20:38] VITALS: BP 129/88
--- NOTE | 2020-06-09 15:23 | ECGEPIP ---
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
== END 2020-06-08 20:39 | disposition home or self-care (01) ==
LOC: M ED 19:05
DX: R79.89 Other specified abnormal findings of blood chemistry (principal); I45.10 Unspecified right bundle-branch block; K50.90 Crohn's disease, unspecified, without complications; F41.9 Anxiety disorder, unspecified; F17.210 Nicotine dependence, cigarettes, uncomplicated; Z79.899 Other long term (current) drug therapy; Z90.49 Acquired absence of other specified parts of digestive tract

== ENCOUNTER → 2020-06-25 | Outpatient (CLI) | payer OTHER | LOC: M LABSMTC 10:08 | PROVIDERS: ATTEND Internal Medicine Gastroenterology | DX: U07.1 COVID-19 (principal) | CPT/HCPCS: C9803; U0003 ==

== ENCOUNTER → 2020-08-26 | Outpatient (CLI) | payer OTHER ==
--- NOTE | 2020-08-26 16:57 | REP ---
INDICATION: HEARTBURN; CROHN'S DISEASE COMPARISON: None. TECHNIQUE: PA/Lateral FINDINGS: Lungs: Clear, no infiltrate. Heart: Normal in size. Mediastinum: Mediastinal silhouette unremarkable. Pleural angles: Unremarkable.. Bones and soft tissues: Unremarkable. IMPRESSION: No acute pulmonary disease. <Electronically signed by Monty Meade > 08/26/20 [id number]
== END ==
LOC: M CLY 14:50
PROVIDERS: ATTEND Obstetrics & Gynecology
DX: K50.10 Crohn's disease of large intestine without complications (principal); R12 Heartburn

== ENCOUNTER → 2020-09-08 | Outpatient (REF) | payer OTHER ==
[2020-09-08 15:49] LABS: HEMATOCRIT 45.9 % (36.0-47.0); HEMOGLOBIN 14.7 g/dl (12.0-15.5); MEAN CORPUSCULAR HEMOGLOBIN 28.2 pg (27.0-33.0); MEAN CORPUSCULAR VOLUME 88.1 fl (80.0-96.0); PLATELET COUNT, AUTOMATED 378 10^3/uL (150-450); RED BLOOD COUNT 5.21 10^6/uL (4.00-5.40); WHITE BLOOD COUNT 7.7 10^3/uL (4.0-10.0)
[2020-09-08 16:14] LABS: ERYTHROCYTE SEDIMENTATION RATE 8 mm/hr (0-20)
[2020-09-08 16:28] LABS: ALT/SGPT 12 U/L (12-78); BILIRUBIN,TOTAL 0.4 MG/DL (0.2-1.0); BLOOD UREA NITROGEN 11 MG/DL (7-18); CALCIUM LEVEL 8.8 MG/DL (8.5-10.1); CARBON DIOXIDE LEVEL 33 MEQ/L (21-32); CHLORIDE LEVEL 102 MEQ/L (98-107); CREATININE FOR GFR 0.78 MG/DL (0.55-1.30); GLOMERULAR FILTRATION RATE > 60.0 (>60); GLUCOSE, FASTING 86 MG/DL (70-100); POTASSIUM SERUM 5.2 MEQ/L (3.5-5.1); SODIUM LEVEL 138 MEQ/L (136-145); TOTAL PROTEIN 5.9 GM/DL (6.4-8.2)
[2020-09-08 16:29] LABS: C REACTIVE PROTEIN QUANTITATIV 1.93 MG/DL (0.00-0.30)
== END ==
LOC: M LABDRAWC 15:24
PROVIDERS: ATTEND Nurse Practitioner
DX: K50.10 Crohn's disease of large intestine without complications (principal); R12 Heartburn

== ENCOUNTER → 2020-11-29 | Outpatient (REF) | payer OTHER ==
[2020-11-30 11:50] LABS: HEMATOCRIT 41.2 % (36.0-47.0); MEAN CORPUSCULAR HEMOGLOBIN 27.7 pg (27.0-33.0); MEAN CORPUSCULAR HGB CONC 31.6 g/dl (32.0-36.5); MEAN CORPUSCULAR VOLUME 87.7 fl (80.0-96.0); PLATELET COUNT, AUTOMATED 378 10^3/uL (150-450); WHITE BLOOD COUNT 8.3 10^3/uL (4.0-10.0)
[2020-11-30 12:11] LABS: ALBUMIN 2.9 GM/DL (3.2-5.2); ALT/SGPT 16 U/L (12-78); BILIRUBIN,TOTAL 0.4 MG/DL (0.2-1.0); BLOOD UREA NITROGEN 12 MG/DL (7-18); C REACTIVE PROTEIN QUANTITATIV 1.02 MG/DL (0.00-0.30); CALCIUM LEVEL 8.5 MG/DL (8.5-10.1); CARBON DIOXIDE LEVEL 31 MEQ/L (21-32); CHLORIDE LEVEL 106 MEQ/L (98-107); CREATININE FOR GFR 0.57 MG/DL (0.55-1.30); ERYTHROCYTE SEDIMENTATION RATE 8 mm/hr (0-20); GLOMERULAR FILTRATION RATE > 60.0 (>60); GLUCOSE, FASTING 84 MG/DL (70-100); POTASSIUM SERUM 5.6 MEQ/L (3.5-5.1); SODIUM LEVEL 138 MEQ/L (136-145); TOTAL PROTEIN 5.7 GM/DL (6.4-8.2)
== END ==
LOC: M LABDRAWC 11:19
PROVIDERS: ATTEND Internal Medicine Gastroenterology
DX: K50.10 Crohn's disease of large intestine without complications (principal); K59.1 Functional diarrhea; R10.33 Periumbilical pain; R10.31 Right lower quadrant pain; K63.3 Ulcer of intestine; Z22.7 Latent tuberculosis

== ENCOUNTER 2020-12-05 08:35 | Outpatient (CLI) | payer OTHER ==
[~2020-12-05] VITALS: Ht 160 cm; Wt 48.0 kg
[2020-12-05] VITALS (7 sets, daily range): BP systolic 105–120; BP diastolic 56–72
[~2020-12-05 08:35] MED LIST changes: +ACETAMINOPHEN 650MG PO PRIOR TO INFUSION PO ONE; +INFLIXIMAB BIOSIMILAR 200 MG in NS 230 ML IV ONE; +NS 1,000 ML IV SCH
== END 2020-12-05 11:30 | disposition home or self-care (01) ==
LOC: M INFU 08:35
PROVIDERS: ATTEND Internal Medicine Gastroenterology
DX: K50.10 Crohn's disease of large intestine without complications (principal)
CPT/HCPCS: 96365; 96366; Q5103

== ENCOUNTER 2020-12-19 10:10 | Outpatient (CLI) | payer OTHER ==
[~2020-12-19] VITALS: Ht 160 cm; Wt 48.0 kg
[2020-12-19 10:15] VITALS: BP 114/68
[2020-12-19 11:30] VITALS: BP 109/64
[2020-12-19 12:15] VITALS: BP 100/62
[2020-12-19 13:15] VITALS: BP 118/66
[2020-12-19 13:30] VITALS: BP 112/68
== END 2020-12-19 13:30 | disposition home or self-care (01) ==
LOC: M INFU 10:10
PROVIDERS: ATTEND Internal Medicine Gastroenterology
DX: K50.10 Crohn's disease of large intestine without complications (principal)
CPT/HCPCS: 96365; 96366; Q5103

== ENCOUNTER 2021-01-16 10:46 | Outpatient (CLI) | payer OTHER ==
[~2021-01-16] VITALS: Ht 160 cm; Wt 48.1 kg
[2021-01-16 10:50] VITALS: BP 127/72
[2021-01-16 11:00] VITALS: BP 127/72
[2021-01-16 12:15] VITALS: BP 107/65
[2021-01-16 13:10] VITALS: BP 118/67
[2021-01-16 13:45] VITALS: BP 130/62
== END 2021-01-16 13:45 | disposition home or self-care (01) ==
LOC: M INFU 10:46
PROVIDERS: ATTEND Internal Medicine Gastroenterology
DX: K50.10 Crohn's disease of large intestine without complications (principal)
CPT/HCPCS: 96365; 96366; Q5103

== ENCOUNTER → 2021-02-28 | Outpatient (CLI) | payer OTHER ==
[~2021-02-28] MED LIST changes: -ACETAMINOPHEN 650MG PO PRIOR TO INFUSION PO ONE; -INFLIXIMAB BIOSIMILAR 200 MG in NS 230 ML IV ONE; -NS 1,000 ML IV SCH
[2021-02-28 13:11] LABS: HEMATOCRIT 40.6 % (36.0-47.0); HEMOGLOBIN 12.7 g/dl (12.0-15.5); MEAN CORPUSCULAR HEMOGLOBIN 26.6 pg (27.0-33.0); MEAN CORPUSCULAR HGB CONC 31.3 g/dl (32.0-36.5); MEAN CORPUSCULAR VOLUME 85.1 fl (80.0-96.0); PLATELET COUNT, AUTOMATED 400 10^3/uL (150-450); RED BLOOD COUNT 4.77 10^6/uL (4.00-5.40); WHITE BLOOD COUNT 7.1 10^3/uL (4.0-10.0)
[2021-02-28 13:31] LABS: ALBUMIN 2.7 GM/DL (3.2-5.2); ALT/SGPT 14 U/L (12-78); BILIRUBIN,TOTAL 0.5 MG/DL (0.2-1.0); BLOOD UREA NITROGEN 10 MG/DL (7-18); CALCIUM LEVEL 8.8 MG/DL (8.5-10.1); CARBON DIOXIDE LEVEL 30 MEQ/L (21-32); CHLORIDE LEVEL 106 MEQ/L (98-107); CREATININE FOR GFR 0.56 MG/DL (0.55-1.30); GLOMERULAR FILTRATION RATE > 60.0 (>60); GLUCOSE, FASTING 92 MG/DL (70-100); POTASSIUM SERUM 4.4 MEQ/L (3.5-5.1); SODIUM LEVEL 139 MEQ/L (136-145); TOTAL PROTEIN 6.3 GM/DL (6.4-8.2)
== END ==
LOC: M LAB 12:11
PROVIDERS: ATTEND Internal Medicine Gastroenterology
DX: K50.10 Crohn's disease of large intestine without complications (principal); R10.31 Right lower quadrant pain; D50.9 Iron deficiency anemia, unspecified

== ENCOUNTER 2021-03-14 07:43 | Outpatient (CLI) | payer OTHER ==
[~2021-03-14] VITALS: Ht 160 cm; Wt 48.0 kg
[2021-03-14] VITALS (7 sets, daily range): BP systolic 118–154; BP diastolic 60–78
[~2021-03-14 07:43] MED LIST changes: +ACETAMINOPHEN 650MG PO PRIOR TO INFUSION PO ONE; +INFLIXIMAB BIOSIMILAR 200 MG in NS 230 ML IV ONE; +NS 1,000 ML IV SCH
== END 2021-03-14 10:15 | disposition home or self-care (01) ==
LOC: M INFU 07:43
PROVIDERS: ATTEND Internal Medicine Gastroenterology
DX: K50.10 Crohn's disease of large intestine without complications (principal)
CPT/HCPCS: 96365; 96366; Q5103

== ENCOUNTER 2021-05-09 08:03 | Outpatient (CLI) | payer OTHER ==
[~2021-05-09] VITALS: Ht 160 cm; Wt 48.0 kg
[~2021-05-09 08:03] MED LIST changes: -INFLIXIMAB BIOSIMILAR 200 MG in NS 230 ML IV ONE; +INFLIXIMAB BIOSIMILAR 500 MG in NS 200 ML IV ONE
[2021-05-09 08:20] VITALS: BP 124/82
[2021-05-09] MEDS ORDERED: INFL100I IV (08:43)
[2021-05-09] MEDS ORDERED: PRED20TA PO (08:43)
[2021-05-09 09:19] VITALS: BP 110/64
[2021-05-09 10:05] VITALS: BP 114/72
== END 2021-05-09 13:58 | disposition home or self-care (01) ==
LOC: M INFU 08:03
PROVIDERS: ATTEND Internal Medicine Gastroenterology
DX: K50.10 Crohn's disease of large intestine without complications (principal)
CPT/HCPCS: 96365; Q5103

== ENCOUNTER → 2021-05-18 | Outpatient (CLI) | payer OTHER ==
[~2021-05-18] MED LIST changes: -ACETAMINOPHEN 650MG PO PRIOR TO INFUSION PO ONE; +INFL100I IV; -INFLIXIMAB BIOSIMILAR 500 MG in NS 200 ML IV ONE; -NS 1,000 ML IV SCH
[2021-05-18 12:00] LABS: HEMATOCRIT 43.1 % (36.0-47.0); HEMOGLOBIN 13.5 g/dl (12.0-15.5); MEAN CORPUSCULAR HEMOGLOBIN 26.9 pg (27.0-33.0); MEAN CORPUSCULAR HGB CONC 31.3 g/dl (32.0-36.5); MEAN CORPUSCULAR VOLUME 85.9 fl (80.0-96.0); PLATELET COUNT, AUTOMATED 422 10^3/uL (150-450); RED BLOOD COUNT 5.02 10^6/uL (4.00-5.40); WHITE BLOOD COUNT 14.5 10^3/uL (4.0-10.0)
[2021-05-18 12:56] LABS: ERYTHROCYTE SEDIMENTATION RATE 5 mm/hr (0-20)
[2021-05-18 13:58] LABS: ALBUMIN 2.6 GM/DL (3.2-5.2); ALT/SGPT 18 U/L (12-78); BILIRUBIN,TOTAL 0.4 MG/DL (0.2-1.0); BLOOD UREA NITROGEN 9 MG/DL (7-18); C REACTIVE PROTEIN QUANTITATIV 0.58 MG/DL (0.00-0.30); CALCIUM LEVEL 8.3 MG/DL (8.5-10.1); CARBON DIOXIDE LEVEL 33 MEQ/L (21-32); CHLORIDE LEVEL 106 MEQ/L (98-107); CREATININE FOR GFR 0.55 MG/DL (0.55-1.30); GLOMERULAR FILTRATION RATE > 60.0 (>60); GLUCOSE, FASTING 61 MG/DL (70-100); LIPASE 63 U/L (73-393); POTASSIUM SERUM 4.1 MEQ/L (3.5-5.1); SODIUM LEVEL 142 MEQ/L (136-145); TOTAL PROTEIN 5.5 GM/DL (6.4-8.2)
== END ==
LOC: M LAB 11:10
PROVIDERS: ATTEND Internal Medicine Gastroenterology
DX: K50.10 Crohn's disease of large intestine without complications (principal); K56.699 Other intestinal obstruction unspecified as to partial versus complete obstruction; R11.0 Nausea

== ENCOUNTER 2021-06-07 08:18 | Outpatient (CLI) | payer OTHER ==
[~2021-06-07] VITALS: Ht 160 cm; Wt 56.0 kg
[~2021-06-07 08:18] MED LIST changes: +ACETAMINOPHEN 650MG PO PRIOR TO INFUSION PO ONE; +INFLIXIMAB BIOSIMILAR 600 MG in NS 190 ML IV ONE; +NS 1,000 ML IV SCH
[2021-06-07 08:25] VITALS: BP 130/81
[2021-06-07 09:30] VITALS: BP 119/68
[2021-06-07 10:25] VITALS: BP 113/57
== END 2021-06-07 10:30 | disposition home or self-care (01) ==
LOC: M INFU 08:18
PROVIDERS: ATTEND Internal Medicine Gastroenterology
DX: K50.10 Crohn's disease of large intestine without complications (principal); K50.00 Crohn's disease of small intestine without complications; K56.699 Other intestinal obstruction unspecified as to partial versus complete obstruction
CPT/HCPCS: 96365; Q5103

== ENCOUNTER → 2021-06-15 | Outpatient (REF) | payer OTHER ==
[~2021-06-15] MED LIST changes: -ACETAMINOPHEN 650MG PO PRIOR TO INFUSION PO ONE; -INFLIXIMAB BIOSIMILAR 600 MG in NS 190 ML IV ONE; -NS 1,000 ML IV SCH
== END ==
LOC: M SFHCCLAY 14:23
PROVIDERS: ATTEND Family Medicine
DX: Z12.4 Encounter for screening for malignant neoplasm of cervix (principal)

== ENCOUNTER → 2021-06-15 | Outpatient (REF) | payer OTHER | LOC: M SFHCCLAY 11:48 | PROVIDERS: ATTEND Family Medicine | DX: Z12.4 Encounter for screening for malignant neoplasm of cervix (principal); Z77.9 Other contact with and (suspected) exposures hazardous to health ==

== ENCOUNTER 2021-06-21 07:46 | Outpatient (CLI) | payer OTHER ==
[~2021-06-21] VITALS: Ht 160 cm; Wt 56.0 kg
[~2021-06-21 07:46] MED LIST changes: +ACETAMINOPHEN 650MG PO PRIOR TO INFUSION PO ONE; +INFLIXIMAB BIOSIMILAR 600 MG in NS 190 ML IV ONE; +NS 1,000 ML IV SCH
[2021-06-21 07:55] VITALS: BP 130/79
[2021-06-21 09:05] VITALS: BP 105/58
[2021-06-21 09:55] VITALS: BP 112/58
== END 2021-06-21 09:55 | disposition home or self-care (01) ==
LOC: M INFU 07:46
PROVIDERS: ATTEND Internal Medicine Gastroenterology
DX: K50.90 Crohn's disease, unspecified, without complications (principal)
CPT/HCPCS: 96365; Q5103

== ENCOUNTER 2021-07-19 09:43 | Outpatient (CLI) | payer OTHER ==
[2021-07-19 09:45] VITALS: BP 122/65
[2021-07-19 10:19] LABS: HEMATOCRIT 37.7 % (36.0-47.0); HEMOGLOBIN 12.1 g/dl (12.0-15.5); MEAN CORPUSCULAR HEMOGLOBIN 26.4 pg (27.0-33.0); MEAN CORPUSCULAR HGB CONC 32.1 g/dl (32.0-36.5); MEAN CORPUSCULAR VOLUME 82.3 fl (80.0-96.0); PLATELET COUNT, AUTOMATED 455 10^3/uL (150-450); RED BLOOD COUNT 4.58 10^6/uL (4.00-5.40); WHITE BLOOD COUNT 12.1 10^3/uL (4.0-10.0)
[2021-07-19 10:37] LABS: BLOOD UREA NITROGEN 14 MG/DL (7-18); CALCIUM LEVEL 8.6 MG/DL (8.5-10.1); CARBON DIOXIDE LEVEL 28 MEQ/L (21-32); CHLORIDE LEVEL 110 MEQ/L (98-107); CREATININE FOR GFR 0.59 MG/DL (0.55-1.30); FERRITIN 10 NG/ML (8-252); GLOMERULAR FILTRATION RATE > 60.0 (>60); GLUCOSE, FASTING 83 MG/DL (70-100); IRON (FE) 16 UG/DL (50-170); LIPASE 53 U/L (73-393); PERCENT SATURATION 4.9 % (13.2-45.0); POTASSIUM SERUM 4.4 MEQ/L (3.5-5.1); SODIUM LEVEL 141 MEQ/L (136-145); TOTAL IRON BINDING CAPACITY 325 UG/DL (250-450)
[2021-07-19 10:44] LABS: VITAMIN B12 LEVEL 621 PG/ML (247-911)
[2021-07-19 11:18] LABS: ERYTHROCYTE SEDIMENTATION RATE 12 mm/hr (0-20)
[2021-07-19 12:20] VITALS: BP 124/58
== END 2021-07-19 12:30 | disposition home or self-care (01) ==
LOC: M INFU 09:43
PROVIDERS: ATTEND Internal Medicine Gastroenterology
DX: K50.90 Crohn's disease, unspecified, without complications (principal)
CPT/HCPCS: 80048; 82607; 82728; 83550; 83690; 85027; 85652; 96365; Q5103

== ENCOUNTER → 2021-08-25 | Outpatient (CLI) | payer OTHER ==
[~2021-08-25] MED LIST changes: -ACETAMINOPHEN 650MG PO PRIOR TO INFUSION PO ONE; -CEFD1CAP8 PO; +CEFD300C41 PO; -INFLIXIMAB BIOSIMILAR 600 MG in NS 190 ML IV ONE; -NS 1,000 ML IV SCH
== END ==
LOC: M LAB 15:33
PROVIDERS: ATTEND Internal Medicine Gastroenterology
DX: K50.10 Crohn's disease of large intestine without complications (principal); L52 Erythema nodosum; K59.1 Functional diarrhea

== ENCOUNTER → 2021-11-07 | Outpatient (REF) | payer OTHER ==
[2021-11-07 17:07] LABS: HEMATOCRIT 40.7 % (36.0-47.0); HEMOGLOBIN 12.4 g/dl (12.0-15.5); MEAN CORPUSCULAR HEMOGLOBIN 24.1 pg (27.0-33.0); MEAN CORPUSCULAR HGB CONC 30.5 g/dl (32.0-36.5); PLATELET COUNT, AUTOMATED 465 10^3/uL (150-450); RED BLOOD COUNT 5.15 10^6/uL (4.00-5.40); WHITE BLOOD COUNT 8.1 10^3/uL (4.0-10.0)
[2021-11-07 17:33] LABS: ALBUMIN 2.6 GM/DL (3.2-5.2); ALT/SGPT 24 U/L (12-78); BILIRUBIN,TOTAL 0.5 MG/DL (0.2-1.0); BLOOD UREA NITROGEN 13 MG/DL (7-18); C REACTIVE PROTEIN QUANTITATIV 3.91 MG/DL (0.00-0.30); CALCIUM LEVEL 8.5 MG/DL (8.5-10.1); CARBON DIOXIDE LEVEL 31 MEQ/L (21-32); CHLORIDE LEVEL 103 MEQ/L (98-107); CREATININE FOR GFR 0.75 MG/DL (0.55-1.30); GLOMERULAR FILTRATION RATE > 60.0 (>60); GLUCOSE, FASTING 78 MG/DL (70-100); POTASSIUM SERUM 4.3 MEQ/L (3.5-5.1); SODIUM LEVEL 139 MEQ/L (136-145); TOTAL PROTEIN 6.1 GM/DL (6.4-8.2)
[2021-11-07 18:21] LABS: ERYTHROCYTE SEDIMENTATION RATE 21 mm/hr (0-20)
== END ==
LOC: M LABDRWCV 15:31
PROVIDERS: ATTEND Internal Medicine Gastroenterology
DX: R10.31 Right lower quadrant pain (principal); D50.9 Iron deficiency anemia, unspecified; K50.10 Crohn's disease of large intestine without complications

== ENCOUNTER 2021-11-30 10:01 | Emergency (ER) | payer OTHER ==
[~2021-11-30] VITALS: Ht 160 cm; Wt 59.1 kg
[2021-11-30] MEDS ORDERED: CIMZ200K (10:10)
[2021-11-30 12:19] LABS: BASO % 0.3 % (0.0-1.0); EOS # 0.1 10^3/uL (0.0-0.5); EOS % 0.4 % (0.0-3.0); HEMATOCRIT 35.4 % (36.0-47.0); HEMOGLOBIN 10.9 g/dl (12.0-15.5); LYMPH # 1.1 10^3/uL (1.5-5.0); MEAN CORPUSCULAR HEMOGLOBIN 23.3 pg (27.0-33.0); MEAN CORPUSCULAR HGB CONC 30.8 g/dl (32.0-36.5); MEAN CORPUSCULAR VOLUME 75.8 fl (80.0-96.0); MONO # 0.6 10^3/uL (0.0-0.8); MONO % 5.2 % (2.0-8.0); NEUTROPHILS # 9.5 10^3/uL (1.5-8.5); NEUTROPHILS % 83.7 % (36.0-66.0); PLATELET COUNT, AUTOMATED 381 10^3/uL (150-450); RED BLOOD COUNT 4.67 10^6/uL (4.00-5.40); WHITE BLOOD COUNT 11.4 10^3/uL (4.0-10.0)
[2021-11-30 12:36] LABS: ALBUMIN 2.8 GM/DL (3.2-5.2); ALT/SGPT 21 U/L (12-78); BILIRUBIN,DIRECT < 0.1 MG/DL (0.0-0.2); BILIRUBIN,TOTAL 0.3 MG/DL (0.2-1.0); C REACTIVE PROTEIN QUANTITATIV 3.42 MG/DL (0.00-0.30); RHEUMATOID FACTOR QUANT < 10.0 IU/ML (<15.0); TOTAL PROTEIN 5.9 GM/DL (6.4-8.2); URIC ACID 2.3 MG/DL (2.6-6.0)
[2021-11-30 12:53] LABS: ERYTHROCYTE SEDIMENTATION RATE 23 mm/hr (0-20)
[2021-11-30 13:17] VITALS: BP 140/78
[2021-12-01 16:12] LABS: Lyme Disease IgG/IgM Antibodie <0.91 ISR (0.00-0.90); Lyme Disease IgM Ab Quantitati <0.80 index (0.00-0.79)
== END 2021-11-30 13:49 | disposition home or self-care (01) ==
LOC: M ED 10:01
DX: M25.461 Effusion, right knee (principal); F33.9 Major depressive disorder, recurrent, unspecified; K21.9 Gastro-esophageal reflux disease without esophagitis; K50.90 Crohn's disease, unspecified, without complications; Z22.7 Latent tuberculosis; Z79.899 Other long term (current) drug therapy; Z79.891 Long term (current) use of opiate analgesic; F17.210 Nicotine dependence, cigarettes, uncomplicated

== ENCOUNTER → 2022-03-02 | Outpatient (REF) | payer OTHER ==
[~2022-03-02] MED LIST changes: +CIMZ200K
[2022-03-02 18:31] LABS: HEMATOCRIT 38.1 % (36.0-47.0); HEMOGLOBIN 11.4 g/dl (12.0-15.5); MEAN CORPUSCULAR HEMOGLOBIN 23.3 pg (27.0-33.0); MEAN CORPUSCULAR HGB CONC 29.9 g/dl (32.0-36.5); MEAN CORPUSCULAR VOLUME 77.9 fl (80.0-96.0); PLATELET COUNT, AUTOMATED 497 10^3/uL (150-450); RED BLOOD COUNT 4.89 10^6/uL (4.00-5.40); WHITE BLOOD COUNT 9.6 10^3/uL (4.0-10.0)
[2022-03-02 18:46] LABS: ALBUMIN 2.5 GM/DL (3.2-5.2); ALT/SGPT 13 U/L (12-78); BILIRUBIN,TOTAL 0.3 MG/DL (0.2-1.0); BLOOD UREA NITROGEN 16 MG/DL (7-18); C REACTIVE PROTEIN QUANTITATIV 3.74 MG/DL (0.00-0.30); CALCIUM LEVEL 8.4 MG/DL (8.5-10.1); CARBON DIOXIDE LEVEL 29 MEQ/L (21-32); CHLORIDE LEVEL 104 MEQ/L (98-107); CREATININE FOR GFR 0.91 MG/DL (0.55-1.30); GLOMERULAR FILTRATION RATE > 60.0 (>60); GLUCOSE, FASTING 107 MG/DL (70-100); POTASSIUM SERUM 4.5 MEQ/L (3.5-5.1); SODIUM LEVEL 138 MEQ/L (136-145); TOTAL PROTEIN 5.5 GM/DL (6.4-8.2)
== END ==
LOC: M LABDRAWC 17:49
PROVIDERS: ATTEND Internal Medicine Gastroenterology
DX: K50.00 Crohn's disease of small intestine without complications (principal); K59.1 Functional diarrhea; L52 Erythema nodosum; M19.90 Unspecified osteoarthritis, unspecified site

== ENCOUNTER → 2022-03-20 | Outpatient (CLI) | payer OTHER ==
[~2022-03-20] MED LIST changes: +GLUCAGON INJ 1MG VIAL As Ordered ONE; +ISOVUE-370 76% 100ML VIAL As Ordered ONE; +NEULUMEX 0.1% SUSPENSION 450ML BOTTLE (FORMERLY VOLUMEN) As Ordered ONE
== END ==
LOC: M RAD 11:30
PROVIDERS: ATTEND Internal Medicine Gastroenterology
DX: K50.10 Crohn's disease of large intestine without complications (principal)
CPT/HCPCS: 74177; J1610; Q9967

== ENCOUNTER 2022-04-13 09:03 | Outpatient (CLI) | payer OTHER ==
[~2022-04-13] VITALS: Ht 190.5 cm; Wt 61.2 kg
[~2022-04-13 09:03] MED LIST changes: +ALBUTEROL SULFATE 2.5 MG/0.5 ML INH NEB SOLN INH PRN; +EPINEPHrine INJ 1 MG/ML 1ML AMP IM PRN; -GLUCAGON INJ 1MG VIAL As Ordered ONE; -ISOVUE-370 76% 100ML VIAL As Ordered ONE; -NEULUMEX 0.1% SUSPENSION 450ML BOTTLE (FORMERLY VOLUMEN) As Ordered ONE; +NS 1,000 ML IV SCH; +USTEKINUMAB 390 MG in NS 172 ML IV ONE; +diphenhydrAMINE 50MG/ML VIAL (J1200) IV PRN; +methylPREDNISolone 125MG 2ML VIAL IV PRN
[2022-04-13 09:05] VITALS: BP 130/82
[2022-04-13 10:45] VITALS: BP 126/71
[2022-04-13 12:30] VITALS: BP 123/75
== END 2022-04-13 12:45 | disposition home or self-care (01) ==
LOC: M INFU 09:03
PROVIDERS: ATTEND Internal Medicine Gastroenterology
DX: K50.919 Crohn's disease, unspecified, with unspecified complications (principal)
CPT/HCPCS: 96365; 96366; J3358

== ENCOUNTER → 2022-05-10 | Outpatient (REF) | payer OTHER ==
[~2022-05-10] MED LIST changes: -ALBUTEROL SULFATE 2.5 MG/0.5 ML INH NEB SOLN INH PRN; -EPINEPHrine INJ 1 MG/ML 1ML AMP IM PRN; -NS 1,000 ML IV SCH; -USTEKINUMAB 390 MG in NS 172 ML IV ONE; -diphenhydrAMINE 50MG/ML VIAL (J1200) IV PRN; -methylPREDNISolone 125MG 2ML VIAL IV PRN
[2022-05-10 17:39] LABS: HEMOGLOBIN 11.5 g/dl (12.0-15.5); MEAN CORPUSCULAR HGB CONC 29.5 g/dl (32.0-36.5); MEAN CORPUSCULAR VOLUME 77.8 fl (80.0-96.0); PLATELET COUNT, AUTOMATED 457 10^3/uL (150-450); RED BLOOD COUNT 5.01 10^6/uL (4.00-5.40); WHITE BLOOD COUNT 17.9 10^3/uL (4.0-10.0)
[2022-05-10 18:52] LABS: ALBUMIN 2.4 GM/DL (3.2-5.2); ALT/SGPT 23 U/L (12-78); BILIRUBIN,TOTAL 0.3 MG/DL (0.2-1.0); BLOOD UREA NITROGEN 12 MG/DL (7-18); C REACTIVE PROTEIN QUANTITATIV 1.87 MG/DL (0.00-0.30); CALCIUM LEVEL 8.7 MG/DL (8.5-10.1); CARBON DIOXIDE LEVEL 25 MEQ/L (21-32); CHLORIDE LEVEL 102 MEQ/L (98-107); FERRITIN 9 NG/ML (8-252); GLOMERULAR FILTRATION RATE > 60.0 (>60); GLUCOSE, FASTING 94 MG/DL (70-100); IRON (FE) 17 UG/DL (50-170); PERCENT SATURATION 4.6 % (13.2-45.0); POTASSIUM SERUM 4.3 MEQ/L (3.5-5.1); SODIUM LEVEL 135 MEQ/L (136-145); TOTAL IRON BINDING CAPACITY 367 UG/DL (250-450); TOTAL PROTEIN 5.4 GM/DL (6.4-8.2)
[2022-05-10 19:29] LABS: TOTAL 25(OH) VITAMIN D 14.2 NG/ML (30.0-100.0)
== END ==
LOC: M LABDRAWC 16:59
PROVIDERS: ATTEND Internal Medicine Gastroenterology
DX: K59.1 Functional diarrhea (principal); K50.00 Crohn's disease of small intestine without complications; L52 Erythema nodosum; K21.9 Gastro-esophageal reflux disease without esophagitis; R10.31 Right lower quadrant pain; E56.9 Vitamin deficiency, unspecified

== ENCOUNTER → 2022-08-01 | Outpatient (REF) | payer OTHER ==
[2022-08-01 17:19] LABS: HEMATOCRIT 34.3 % (36.0-47.0); HEMOGLOBIN 9.8 g/dl (12.0-15.5); MEAN CORPUSCULAR HEMOGLOBIN 21.6 pg (27.0-33.0); MEAN CORPUSCULAR HGB CONC 28.6 g/dl (32.0-36.5); MEAN CORPUSCULAR VOLUME 75.6 fl (80.0-96.0); PLATELET COUNT, AUTOMATED 647 10^3/uL (150-450); RED BLOOD COUNT 4.54 10^6/uL (4.00-5.40); WHITE BLOOD COUNT 18.6 10^3/uL (4.0-10.0)
[2022-08-01 18:09] LABS: ALBUMIN 2.8 G/DL (3.2-5.2); ALT/SGPT 13 U/L (7.0-40); BILIRUBIN,TOTAL 0.2 MG/DL (0.3-1.2); BLOOD UREA NITROGEN 14 MG/DL (9-23); CALCIUM LEVEL 8.3 MG/DL (8.5-10.1); CARBON DIOXIDE LEVEL 28 MMOL/L (20-31); CHLORIDE LEVEL 102 MMOL/L (98-107); CREATININE FOR GFR 0.67 MG/DL (0.55-1.30); GLOMERULAR FILTRATION RATE > 60.0 (>60); GLUCOSE, FASTING 75 MG/DL (60-100); POTASSIUM SERUM 4.2 MMOL/L (3.5-5.1); SODIUM LEVEL 138 MMOL/L (136-145); TOTAL PROTEIN 5.4 G/DL (5.7-8.2)
[2022-08-01 18:46] LABS: ERYTHROCYTE SEDIMENTATION RATE 12 mm/hr (0-20)
== END ==
LOC: M LABDRAWC 16:45
PROVIDERS: ATTEND Internal Medicine Gastroenterology
DX: K50.10 Crohn's disease of large intestine without complications (principal); R10.31 Right lower quadrant pain; K59.1 Functional diarrhea

== ENCOUNTER → 2022-08-03 | Outpatient (REF) | payer OTHER | LOC: M LAB REF 10:38 | PROVIDERS: ATTEND Internal Medicine Gastroenterology | DX: K50.10 Crohn's disease of large intestine without complications (principal); R10.31 Right lower quadrant pain; K59.1 Functional diarrhea ==

== ENCOUNTER → 2023-11-05 | Outpatient (CLI) | payer OTHER ==
[~2023-11-05] MED LIST changes: +BUPR1FIL35 SL; +CEFD1CAP9 PO; -CEFD300C41 PO; +CHOL125C5 PO; +CITA20TA7; +CITA30CA PO; +HYOSPOW; +OMEP-173; +PRED5TA; +STEL90IN SQ; +SULF500T2
== END ==
LOC: M RAD 08:35
PROVIDERS: ATTEND Internal Medicine Hematology & Oncology
DX: D50.9 Iron deficiency anemia, unspecified (principal)

== ENCOUNTER → 2024-05-14 | Outpatient (REF) | payer OTHER ==
[2024-05-14 18:19] LABS: BASO # 0.1 10^3/uL (0.0-0.2); BASO % 0.8 % (0.0-1.0); EOS # 0.7 10^3/uL (0.0-0.5); EOS % 6.3 % (0.0-3.0); HEMATOCRIT 43.5 % (36.0-47.0); HEMOGLOBIN 14.3 g/dl (12.0-15.5); LYMPH # 2.8 10^3/uL (1.5-5.0); LYMPH % 25.6 % (24.0-44.0); MEAN CORPUSCULAR HGB CONC 32.9 g/dl (32.0-36.5); MEAN CORPUSCULAR VOLUME 88.2 fl (80.0-96.0); MONO # 0.6 10^3/uL (0.0-0.8); MONO % 5.8 % (2.0-8.0); NEUTROPHILS # 6.8 10^3/uL (1.5-8.5); NEUTROPHILS % 61.3 % (36.0-66.0); PLATELET COUNT, AUTOMATED 370 10^3/uL (150-450); RED BLOOD COUNT 4.93 10^6/uL (4.00-5.40)
[2024-05-14 18:56] LABS: ALBUMIN 3.8 G/DL (3.2-5.2); ALKALINE PHOSPHATASE 68 U/L (46-116); ALT/SGPT 19 U/L (7.0-40); AST/SGOT 17 U/L (<34); BILIRUBIN,TOTAL 0.7 MG/DL (0.3-1.2); BLOOD UREA NITROGEN 13 MG/DL (9-23); CARBON DIOXIDE LEVEL 26 MMOL/L (20-31); CHLORIDE LEVEL 106 MMOL/L (98-107); CREATININE FOR GFR 0.67 MG/DL (0.55-1.30); GLOMERULAR FILTRATION RATE > 60.0 (>60); GLUCOSE, FASTING 82 MG/DL (60-100); IRON (FE) 86 UG/DL (50-170); POTASSIUM SERUM 4.7 MMOL/L (3.5-5.1); SODIUM LEVEL 136 MMOL/L (136-145); TOTAL IRON BINDING CAPACITY 358 UG/DL (250-425); TOTAL PROTEIN 7.1 G/DL (5.7-8.2)
[2024-05-14 18:57] LABS: FERRITIN 51.9 NG/ML (7.3-270.7)
== END ==
LOC: M LABDRAWC 17:49
PROVIDERS: ATTEND Nurse Practitioner
DX: D50.9 Iron deficiency anemia, unspecified (principal)

== ENCOUNTER → 2024-05-29 | Outpatient (REF) | payer OTHER ==
[2024-05-29 18:00] LABS: ALBUMIN 3.8 G/DL (3.2-5.2); ALKALINE PHOSPHATASE 69 U/L (46-116); ALT/SGPT 17 U/L (7.0-40); AST/SGOT 13 U/L (<34); BILIRUBIN,TOTAL 0.5 MG/DL (0.3-1.2); BLOOD UREA NITROGEN 15 MG/DL (9-23); CALCIUM LEVEL 9.4 MG/DL (8.5-10.1); CARBON DIOXIDE LEVEL 29 MMOL/L (20-31); CHLORIDE LEVEL 106 MMOL/L (98-107); CHOLESTEROL LEVEL 149 MG/DL (<200); CHOLESTEROL RISK RATIO 2.81 (<5); CREATININE FOR GFR 0.68 MG/DL (0.55-1.30); GLOMERULAR FILTRATION RATE > 60.0 (>60); GLUCOSE, FASTING 87 MG/DL (60-100); SODIUM LEVEL 138 MMOL/L (136-145); TOTAL PROTEIN 7.1 G/DL (5.7-8.2); TRIGLYCERIDES LEVEL 55 MG/DL (<150)
[2024-05-29 18:01] LABS: FREE T4 1.25 NG/DL (0.89-1.76); THYROID STIMULATING HORMONE 2.134 uIU/ML (0.55-4.78)
== END ==
LOC: M SFHCCLAY 09:22
PROVIDERS: ATTEND Nurse Practitioner Family
DX: F41.9 Anxiety disorder, unspecified (principal); D72.829 Elevated white blood cell count, unspecified; F17.210 Nicotine dependence, cigarettes, uncomplicated; K50.10 Crohn's disease of large intestine without complications; D50.9 Iron deficiency anemia, unspecified; Z87.898 Personal history of other specified conditions; K76.0 Fatty (change of) liver, not elsewhere classified

== ENCOUNTER → 2024-06-12 | Outpatient (CLI) | payer OTHER | LOC: M RAD 09:49 | PROVIDERS: ATTEND Internal Medicine Gastroenterology | DX: K50.10 Crohn's disease of large intestine without complications (principal); D50.9 Iron deficiency anemia, unspecified; B17.10 Acute hepatitis C without hepatic coma; Z22.7 Latent tuberculosis ==

== ENCOUNTER → 2024-09-17 | Outpatient (REF) | payer OTHER | LOC: M SFHCCAPE 11:18 | PROVIDERS: ATTEND Physician Assistant Medical | DX: J02.9 Acute pharyngitis, unspecified (principal) ==

== ENCOUNTER → 2025-01-21 | Outpatient (CLI) | payer OTHER ==
[2025-01-21 10:04] LABS: BASO # 0.1 10^3/uL (0.0-0.2); BASO % 0.6 % (0.0-1.0); EOS # 0.5 10^3/uL (0.0-0.5); EOS % 3.3 % (0.0-3.0); HEMATOCRIT 44.3 % (36.0-47.0); HEMOGLOBIN 14.5 g/dl (12.0-15.5); LYMPH # 2.4 10^3/uL (1.5-5.0); LYMPH % 16.1 % (24.0-44.0); MEAN CORPUSCULAR HEMOGLOBIN 28.7 pg (27.0-33.0); MEAN CORPUSCULAR HGB CONC 32.7 g/dl (32.0-36.5); MEAN CORPUSCULAR VOLUME 87.7 fl (80.0-96.0); MONO # 0.8 10^3/uL (0.0-0.8); MONO % 5.4 % (2.0-8.0); NEUTROPHILS # 10.9 10^3/uL (1.5-8.5); NEUTROPHILS % 74.3 % (36.0-66.0); PLATELET COUNT, AUTOMATED 350 10^3/uL (150-450); RED BLOOD COUNT 5.05 10^6/uL (4.00-5.40); WHITE BLOOD COUNT 14.6 10^3/uL (4.0-10.0)
[2025-01-21 10:30] LABS: ALBUMIN 3.7 G/DL (3.2-5.2); ALKALINE PHOSPHATASE 66 U/L (35-104); ALT/SGPT 52 U/L (7.0-40); AST/SGOT 39 U/L (<34); BLOOD UREA NITROGEN 10 MG/DL (9-23); CALCIUM LEVEL 9.3 MG/DL (8.5-10.1); CARBON DIOXIDE LEVEL 26 MMOL/L (20-31); CHLORIDE LEVEL 104 MMOL/L (98-107); CREATININE FOR GFR 0.61 MG/DL (0.55-1.30); GLOMERULAR FILTRATION RATE > 90.0 (>60); GLUCOSE, FASTING 100 MG/DL (60-100); IRON (FE) 77 UG/DL (50-170); PERCENT SATURATION 23.1 % (13.2-45.0); SODIUM LEVEL 137 MMOL/L (136-145); TOTAL IRON BINDING CAPACITY 334 UG/DL (250-425); TOTAL PROTEIN 6.8 G/DL (5.7-8.2)
[2025-01-21 10:32] LABS: FERRITIN 77.1 NG/ML (7.3-270.7)
== END ==
LOC: M LAB 09:29
PROVIDERS: ATTEND Nurse Practitioner
DX: D50.9 Iron deficiency anemia, unspecified (principal); E53.8 Deficiency of other specified B group vitamins